=== PATIENT | male | born 1945 | race Hispanic/Latino ===

== ENCOUNTER 2018-06-15 14:39 | Inpatient (IN) | payer MEDICARE ==
[2018-06-15] MEDS ORDERED: NACL 0.9% 1000 ML 1,000 ML ONE (15:34)
[2018-06-15] MEDS ORDERED: NACL 0.9% 1000 ML 1,000 ML IV ONE (15:37)
[2018-06-15] MEDS ORDERED: BOOSTRIX IM ONE (15:38)
[2018-06-15 16:12] LABS: Basophils # (Auto) 0.1 K/mm3 (0.0-0.1); Basophils % (Auto) 1.3 % (0.0-1.8); Eosinophils # (Auto) 0.1 K/mm3 (0.0-0.4); Eosinophils % (Auto) 1.6 % (0.0-4.3); Hematocrit 32.4 % (35.5-45.6); Lymphocytes # (Auto) 2.5 K/mm3 (1.2-5.4); Mean Corpuscular HGB Conc 34 % (32-34); Mean Corpuscular Volume 94 fl (84-94); Platelet Count 203 K/mm3 (140-440); Red Blood Count 3.45 M/mm3 (3.65-5.03); Red Cell Distribution Width 14.3 % (13.2-15.2)
--- NOTE | 2018-06-15 16:15 | Emergency Department Report ---
HPI - General Chief Complaint: Fall Time Seen by Provider: 06/15/18 15:25 - HPI HPI: Room 24 The patient is an 82-year-old male presenting with chief complaint of weakness. The patient admits to diarrhea for the past 4-5 days. Patient has approximately 4-to 5 episodes of diarrhea daily. Has nausea or vomiting. Patient states the same amount of time he said intermittent epigastric abdominal pain. Patient denies fever or recent antibiotic usage. Today patient fell when trying to get out of his chair because he felt too weak. Patient never lost consciousness. Patient gives his pain a score of 4/10 Location: [See above] Duration: [See above] Quality: [See above] Severity: [See above] Modifying factors: [see above] Context: [see above] Mode of transportation: [not driving] ED Past Medical Hx - Past Medical History Hx Hypertension: Yes Hx Psychiatric Treatment: Yes - Surgical History Hx Open Heart Surgery: Yes Hx Cholecystectomy: Yes - Family History Family history: no significant - Social History Smoking Status: Former Smoker Substance Use Type: None - Medications Home Medications: Home Medications Medication Instructions Recorded Confirmed Last Taken Type Baclofen 10 mg PO BID 06/15/18 06/15/18 Unknown History Divalproex ER 250 mg PO BID 06/15/18 06/15/18 Unknown History Donepezil HCl 10 mg PO HS 06/15/18 06/15/18 Unknown History Lisinopril 5 mg PO DAILY 06/15/18 06/15/18 Unknown History Melatonin 5 mg PO HS 06/15/18 06/15/18 Unknown History Meloxicam 7.5 mg PO DAILY 06/15/18 06/15/18 Unknown History QUEtiapine 100 mg PO DAILY 06/15/18 06/15/18 Unknown History amLODIPine 5 mg PO DAILY 06/15/18 06/15/18 Unknown History ED Review of Systems ROS: Stated complaint: FALL Other details as noted in HPI Constitutional: denies: fever Eyes: denies: eye pain ENT: denies: throat pain Respiratory: no symptoms reported Cardiovascular: denies: chest pain Endocrine: no symptoms reported Gastrointestinal: abdominal pain, diarrhea. denies: nausea, vomiting Genitourinary: denies: dysuria Musculoskeletal: denies: back pain Neurological: denies: headache Physical Exam - Physical Exam Vital Signs: Vital Signs 06/15/18 15:08 Temperature 98 F Pulse Rate 65 Respiratory 16 Rate Blood Pressure 98/50 [Left] O2 Sat by Pulse 96 Oximetry Physical Exam: GENERAL: The patient is well-developed well-nourished male lying on stretcher appearing to be in acute distress. [] HEENT: Normocephalic. Small laceration to the left lateral supraorbital ridge approximately 1 cm in length. Extraocular motions are intact. Patient has moist mucous membranes. NECK: Supple. No axial step off CHEST/LUNGS: Clear to auscultation. There is no respiratory distress noted. HEART/CARDIOVASCULAR: Regular. There is no tachycardia. There is no gallop rub or murmur. ABDOMEN: Abdomen is soft, with mild discomfort to palpation in the midepigastric region. Patient has normal bowel sounds. There is no abdominal distention. SKIN: There is no rash. There is no edema. There is no diaphoresis. NEURO: The patient is awake, alert, and oriented. The patient is cooperative. The patient has normal speech MUSCULOSKELETAL: There is no evidence of acute injury. ED Course Vital Signs 06/15/18 15:08 Temperature 98 F Pulse Rate 65 Respiratory 16 Rate Blood Pressure 98/50 [Left] O2 Sat by Pulse 96 Oximetry - Laceration /Wound Repair Left Face Wound Location: face Wound Length (cm): 1 Wound's Depth, Shape: linear Wound Explored: clean Irrigated w/ Saline (ccs): 250 Betadine Prep?: Yes Anesthesia: Lidocaine w/ Epi Volume Anesthetic (ccs): 2 Wound Repaired With: sutures Suture Size/Type: 6:0, nylon Number of Sutures: 2 Layer Closure?: No Sterile Dressing Applied?: Yes ED Medical Decision Making - Lab Data Result diagrams: 06/15/18 15:55 06/15/18 15:55 Laboratory Tests 06/15/18 06/15/18 06/15/18 15:55 15:55 16:19 WBC 7.9 RBC 3.45 L Hgb 11.0 L Hct 32.4 L MCV 94 MCH 32 MCHC 34 RDW 14.3 Plt Count 203 Lymph % (Auto) 31.0 [place] % (Auto) 13.0 H Eos % (Auto) 1.6 Baso % (Auto) 1.3 Lymph # 2.5 [place] # 1.0 H Eos # 0.1 Baso # 0.1 Seg Neutrophils % 53.1 Seg Neutrophils # 4.2 Sodium 141 Potassium 3.2 L Chloride 98.0 Carbon Dioxide 30 Anion Gap 16 BUN 31 H Creatinine 1.4 Estimated GFR 48 BUN/Creatinine Ratio 22 Glucose 86 Calcium 8.6 Total Bilirubin 0.40 AST 22 ALT 10 Alkaline Phosphatase 73 Total Protein 6.4 Albumin 3.4 L Albumin/Globulin Ratio 1.1 Lipase 12 L Urine Color Yellow Urine Turbidity Slightly-cloudy Urine pH 6.0 Ur Specific [place] 1.019 Urine Protein 100 mg/dl Urine Glucose (UA) Neg Urine Ketones 20 Urine Blood Neg Urine Nitrite Neg Urine Bilirubin Neg Urine Urobilinogen < 2.0 Ur Leukocyte Esterase Neg Urine WBC (Auto) 3.0 Urine RBC (Auto) 1.0 U Epithel Cells (Auto) < 1.0 Urine Bacteria (Auto) 1+ Hyaline Casts 3 Urine Mucus Few - Radiology Data Radiology results: report reviewed (CT abdomen and pelvis, CT cervical spine, CT head), image reviewed (CT abdomen and pelvis, CT head, CT cervical spine) [place] [address] Cat Scan Report Signed Patient: FLORENCIA DEGROOT MR#: [id number] : 11/20/1935 Acct:[id number] Age/Sex: 82 / M ADM Date: 06/15/18 Loc: ED Attending Dr: Ordering Physician: JANA FAM MD Date of Service: 06/15/18 Procedure(s): CT abdomen pelvis w con Accession Number(s): [id number] cc: JANA FAM MD PROCEDURE: CT ABDOMEN PELVIS W CON TECHNIQUE: Computerized axial tomography of the abdomen and pelvis was performed with intravenous contrast. CONTRAST: CT DOSE LENGTH PRODUCT: 1296.6 mGycm HISTORY: epigastric abdominal pain, diarrhea COMPARISONS: None . FINDINGS: Visualized lower thorax: No significant abnormality. Liver: Normal size and attenuation. Spleen: Normal size and attenuation. Gallbladder and biliary system: Gallbladder has been surgically removed. Pancreas: Normal. Adrenals: Normal. Kidneys: There is a 1.3 cm low density cyst in the upper pole right kidney. There is a 2.1 cm cyst off the posterior upper pole left kidney. There is a 2.7 cm cyst off the anterior mid pole left kidney. GI tract: There is mild generalized wall thickening of the distal portions of the small bowel which are not dilated loops. Findings are likely consistent with a viral gastroenteritis. Sigmoid diverticulosis is noted without active diverticulitis . Lymph nodes and mesentery: Normal. Vasculature: Moderate calcification of aorta is seen. Bladder: Normal. Reproductive organs: Normal. Peritoneum: No free flui d. Musculoskeletal structures: Bilateral facet joint degenerative changes at L5- S1 are noted. Other: None. IMPRESSION: 1. Mild generalized wall thickening of the distal small bowel without dilatation. Findings are likely consistent with a viral gastroenteritis 2. Sigmoid diverticulosis 3. Numerous bilateral renal cysts This document is electronically signed by Akbar Luis MD., June 15 2018 06:03:23 PM ET Transcribed By: [facility] Dictated By: AKBAR LUIS MD Electronically Authenticated By: AKBAR LUIS MD Signed Date/Time: 06/15/181804 DD/ 43 TD/TT: 06/15/181743 - Differential Diagnosis enteritis, C. difficile colitis, dehydration Critical care attestation.: If time is entered above; I have spent that time in minutes in the direct care of this critically ill patient, excluding procedure time. ED Disposition Clinical Impression: Dehydration, Diarrhea, Closed head injury, Facial laceration Disposition: 09 OP ADMIT IP TO THIS HOSP Is pt being admited?: Yes Does the pt Need Aspirin: No Condition: Fair Referrals: PRIMARY CARE, [Primary Care Provider] - 3-5 Days Time of Disposition: 18:50 (Hospitalist notified (Dr Mayers))
[2018-06-15] MEDS ORDERED: SUBLIMAZE IV ONE (16:17)
[2018-06-15] MEDS ORDERED: ZOFRAN IV ONE (16:17)
[2018-06-15 16:35] LABS: Albumin 3.4 g/dL (3.9-5); Calcium 8.6 mg/dL (8.4-10.2)
[2018-06-15 16:56] LABS: Bacteria,Urine 1+ /HPF (Negative); Bilirubin,Urine NEG (Negative); Blood,Urine NEG (Negative); Color,Urine Yellow (Yellow); Hyaline Casts,Urine 3 /LPF; Mucus,Urine FEW /HPF; Urobilinogen,Urine < 2.0 mg/dL (<2.0)
--- NOTE | 2018-06-15 17:52 | Cat Scan Report ---
PROCEDURE: CT HEAD/BRAIN WO CON TECHNIQUE: Axial helical imaging from the skull base to the vertex. HISTORY: head injury after fall COMPARISONS: None FINDINGS: There is no evidence of an acute intracranial process, intracranial hemorrhage or mass effect. Ventricular size is concordant with the degree of atrophy. The visualized portions of the orbits, paranasal and mastoid sinuses are unremarkable. There is no evidence of fracture. IMPRESSION: 1. No evidence of an acute intracranial process, intracranial hemorrhage or mass effect. 2. No evidence of fracture. This document is electronically signed by Audrey Brand MD., June 15 2018 05:50:44 PM ET
[2018-06-15] MEDS ORDERED: XYLOCAINE 1%/ EPI 1:100,000 INFILTRATI ONE (17:53)
[2018-06-15] MEDS ORDERED: XYLOCAINE 2%/ EPI 1:200,000 INFILTRATI ONE (17:53)
--- NOTE | 2018-06-15 17:56 | Cat Scan Report ---
PROCEDURE: CT CERVICAL SPINE WO CON TECHNIQUE: Axial helical imaging through the cervical spine with sagittal and coronal reformatted im ages obtained. HISTORY: head injury after fall COMPARISONS: None FINDINGS: There is mild anterolisthesis of C7 on T1 secondary to degenerative facet change at this level. The vertebral heights are maintained. There is loss of height of the disc spaces throughout the cervical spine with relative sparing of the C4-C5 and C7-T1 discs. There is multiple level degenerative facet change. There is multiple level mild canal and mild to marked foraminal stenosis secondary to spondylitic nettie nge. Visualization of detail the contents of the cervical canal is limited by artifact. There is no evidence of fracture or posttraumatic subluxation. The paraspinous soft tissues are unremarkable. There is atherosclerotic vascular calcification of the carotid bifurcation bilaterally. IMPRESSION: 1. No evidence of fracture or posttraumatic subluxation. 2. Cervical spondylosis with multiple level canal and foraminal stenosis. 3. Atherosclerotic vascular calcification carotid bifurcation bilaterally. This document is electronically signed by Audrey Brand MD., June 15 2018 05:54:31 PM ET
--- NOTE | 2018-06-15 18:05 | Cat Scan Report ---
PROCEDURE: CT ABDOMEN PELVIS W CON TECHNIQUE: Computerized axial tomography of the abdomen and pelvis was performed with intravenous co ntrast. CONTRAST: CT DOSE LENGTH PRODUCT: 1296.6 mGycm HISTORY: epigastric abdominal pain, diarrhea COMPARISONS: None . FINDINGS: Visualized lower thorax: No significant abnormality. Liver: Normal size and attenuation. Spleen: Normal size and attenuation. Gallbladder and biliary system: Gallbladder has been surgically removed. Pancreas: Normal. Adrenals: Normal. Kidneys: There is a 1.3 cm low density cyst in the upper pole right kidney. There is a 2.1 cm cyst of f the posterior upper pole left kidney. There is a 2.7 cm cyst off the anterior mid pole left kidney. GI tract: There is mild generalized wall thickening of the distal portions of the small bowel which a re not dilated loops. Findings are likely consistent with a viral gastroenteritis. Sigmoid diverticul osis is noted without active diverticulitis . Lymph nodes and mesentery: Normal. Vasculature: Moderate calcification of aorta is seen. Bladder: Normal. Reproductive organs: Normal. Peritoneum: No free fluid. Musculoskeletal structures: Bilateral facet joint degenerative changes at L5-S1 are noted. Other: None. IMPRESSION: 1. Mild generalized wall thickening of the distal small bowel without dilatation. Findings are likely consistent with a viral gastroenteritis 2. Sigmoid diverticulosis 3. Numerous bilateral renal cysts This document is electronically signed by Mariam Luis MD., June 15 2018 06:03:23 PM ET
[2018-06-15] MEDS ORDERED: K-DUR PO ONE (18:18)
--- NOTE | 2018-06-16 00:26 | History and Physical Report ---
History of Present Illness Date of examination: 06/15/18 Date of admission: 06/15/18 18:46 Medications and Allergies Allergies Allergy/AdvReac Type Severity Reaction Status Date / Time No Known Allergies Allergy Verified 06/15/18 15:12 Home Medications Medication Instructions Recorded Confirmed Last Taken Type Baclofen 10 mg PO BID 06/15/18 06/15/18 Unknown History Divalproex ER 250 mg PO BID 06/15/18 06/15/18 Unknown History Donepezil HCl 10 mg PO HS 06/15/18 06/15/18 Unknown History Lisinopril 5 mg PO DAILY 06/15/18 06/15/18 Unknown History Melatonin 5 mg PO HS 06/15/18 06/15/18 Unknown History Meloxicam 7.5 mg PO DAILY 06/15/18 06/15/18 Unknown History QUEtiapine 100 mg PO DAILY 06/15/18 06/15/18 Unknown History amLODIPine 5 mg PO DAILY 06/15/18 06/15/18 Unknown History Exam - Constitutional Vitals: Temp Pulse Resp BP Pulse Ox 97.5 F L 65 18 151/77 96 06/15/18 23:23 06/15/18 23:23 06/15/18 23:23 06/15/18 23:23 06/15/18 23:23 Results - Labs CBC & Chem 7: 06/15/18 15:55 06/15/18 15:55 Labs: Laboratory Last Values WBC 7.9 K/mm3 (4.5-11.0) 06/15/18 15:55 RBC 3.45 M/mm3 (3.65-5.03) L 06/15/18 15:55 Hgb 11.0 gm/dl (11.8-15.2) L 06/15/18 15:55 Hct 32.4 % (35.5-45.6) L 06/15/18 15:55 MCV 94 fl (84-94) 06/15/18 15:55 MCH 32 pg (28-32) 06/15/18 15:55 MCHC 34 % (32-34) 06/15/18 15:55 RDW 14.3 % (13.2-15.2) 06/15/18 15:55 Plt Count 203 K/mm3 (140-440) 06/15/18 15:55 Lymph % (Auto) 31.0 % (13.4-35.0) 06/15/18 15:55 [place] % (Auto) 13.0 % (0.0-7.3) H 06/15/18 15:55 Eos % (Auto) 1.6 % (0.0-4.3) 06/15/18 15:55 Baso % (Auto) 1.3 % (0.0-1.8) 06/15/18 15:55 Lymph # 2.5 K/mm3 (1.2-5.4) 06/15/18 15:55 [place] # 1.0 K/mm3 (0.0-0.8) H 06/15/18 15:55 Eos # 0.1 K/mm3 (0.0-0.4) 06/15/18 15:55 Baso # 0.1 K/mm3 (0.0-0.1) 06/15/18 15:55 Seg Neutrophils % 53.1 % (40.0-70.0) 06/15/18 15:55 Seg Neutrophils # 4.2 K/mm3 (1.8-7.7) 06/15/18 15:55 Sodium 141 mmol/L (137-145) 06/15/18 15:55 Potassium 3.2 mmol/L (3.6-5.0) L 06/15/18 15:55 Chloride 98.0 mmol/L (98-107) 06/15/18 15:55 Carbon Dioxide 30 mmol/L (22-30) 06/15/18 15:55 Anion Gap 16 mmol/L 06/15/18 15:55 BUN 31 mg/dL (9-20) H 06/15/18 15:55 Creatinine 1.4 mg/dL (0.8-1.5) 06/15/18 15:55 Estimated GFR 48 ml/min 06/15/18 15:55 BUN/Creatinine Ratio 22 % 06/15/18 15:55 Glucose 86 mg/dL (75-100) 06/15/18 15:55 Calcium 8.6 mg/dL (8.4-10.2) 06/15/18 15:55 Total Bilirubin 0.40 mg/dL (0.1-1.2) 06/15/18 15:55 AST 22 units/L (5-40) 06/15/18 15:55 ALT 10 units/L (7-56) 06/15/18 15:55 Alkaline Phosphatase 73 units/L (35-129) 06/15/18 15:55 Total Protein 6.4 g/dL (6.3-8.2) 06/15/18 15:55 Albumin 3.4 g/dL (3.9-5) L 06/15/18 15:55 Albumin/Globulin Ratio 1.1 % 06/15/18 15:55 Lipase 12 units/L (13-60) L 06/15/18 15:55 Urine Color Yellow (Yellow) 06/15/18 16:19 Urine Turbidity Slightly-cloudy (Clear) 06/15/18 16:19 Urine pH 6.0 (5.0-7.0) 06/15/18 16:19 Ur Specific [place] 1.019 (1.003-1.030) 06/15/18 16:19 Urine Protein 100 mg/dl mg/dL (Negative) 06/15/18 16:19 Urine Glucose (UA) Neg mg/dL (Negative) 06/15/18 16:19 Urine Ketones 20 mg/dL (Negative) 06/15/18 16:19 Urine Blood Neg (Negative) 06/15/18 16:19 Urine Nitrite Neg (Negative) 06/15/18 16:19 Urine Bilirubin Neg (Negative) 06/15/18 16:19 Urine Urobilinogen < 2.0 mg/dL (<2.0) 06/15/18 16:19 Ur Leukocyte Esterase Neg (Negative) 06/15/18 16:19 Urine WBC (Auto) 3.0 /HPF (0.0-6.0) 06/15/18 16:19 Urine RBC (Auto) 1.0 /HPF (0.0-6.0) 06/15/18 16:19 U Epithel Cells (Auto) < 1.0 /HPF (0-13.0) 06/15/18 16:19 Urine Bacteria (Auto) 1+ /HPF (Negative) 06/15/18 16:19 Hyaline Casts 3 /LPF 06/15/18 16:19 Urine Mucus Few /HPF 06/15/18 16:19
[2018-06-16] MEDS ORDERED: TYLENOL PO PRN (00:30)
[2018-06-16] MEDS ORDERED: SODIUM CHLORIDE FLUSH SYRINGE 10 ML IV PRN (00:30)
[2018-06-16] MEDS ORDERED: K-DUR PO ONE (00:44)
[2018-06-16] MEDS ORDERED: NON-FORMULARY (Baclofen 10 MG) PO SCH (00:45)
[2018-06-16] MEDS: D5NS 1,000 ML IV SCH ×2 (01:04→16:07)
[2018-06-16] MEDS: PERCOCET 5/325 PO PRN (01:04)
[2018-06-16] MEDS: ZOFRAN IV PRN (01:05)
[2018-06-16] MEDS: ALUM-MAG HYDROX-SIMETH 200-200-20MG/5ML PO PRN ×2 (04:07→20:58)
--- NOTE | 2018-06-16 07:00 | Event Note ---
Date: 06/15/18 See H/p in reports Hypotension AGE r/o cdiff
--- NOTE | 2018-06-16 07:26 | History and Physical Report ---
CHIEF COMPLAINT: 1. Severe weakness. 2. Fall. HISTORY OF PRESENT ILLNESS: A 73-year-old male presents with a chief complaint of weakness and diarrhea for the past 4-5 days. The patient has 4-5 episodes of loose bowel movements every day. There is no nausea or vomiting. Has intermittent epigastric pain. No recent fever or antibiotic usage. The patient fell when he was trying to get out of the chair and he felt very weak. Never lost consciousness. PAST MEDICAL HISTORY: Significant for hypertension and schizophrenia. PAST SURGICAL HISTORY: Open heart surgery and cholecystectomy. FAMILY HISTORY: Hypertension. SOCIAL HISTORY: Former smoker. CURRENT MEDICATIONS: Lisinopril 5 mg once a day, Seroquel 100 mg p.o. daily and amlodipine 5 mg p.o. daily, Depakote ER 250 mg twice a day, Aricept 10 mg daily. REVIEW OF SYSTEMS: Significant for feeling weak and feeling lightheaded and falling while standing. No syncope. PHYSICAL EXAMINATION: GENERAL: Elderly male, cooperative during examination. VITAL SIGNS: Initial blood pressure was low, but was 73/40 improved to 90/47 and 98/50, temperature was 98, pulse is 65, respirations 16. HEENT: Unremarkable. Mucous membranes dry. NECK: Supple, no lymphadenopathy, no thyromegaly. LUNGS: Clear to auscultation and percussion. Good air entry. CARDIOVASCULAR: S1, S2 heard. No gallop, no murmur, no rub. Apical impulse in left fifth intercostal space and midclavicular line. ABDOMEN: Soft and benign. No hepatosplenomegaly. No guarding, no rigidity. Hernial orifices are normal. EXTREMITIES: Good pedal pulses. No pedal edema. CENTRAL NERVOUS SYSTEM: Alert and oriented x 4, nonfocal exam. SKIN: Normal. LABORATORY DATA: Significant for white count of 7900, H and H 11.0 and 32.4, potassium is 3.2, albumin is 3.4. Urine is normal. ASSESSMENT AND PLAN: 1. Acute gastroenteritis causing low blood pressure. Symptomatic treatment for the gastroenteritis. 2. Rule out Clostridium difficile. Clostridium difficile toxin ordered. Stool studies ordered. 3. Hypotension, probably secondary to loss of volume. IV fluids for now. 4. Hypokalemia, supplemented. 5. Hypertension. We will introduce antihypertensives when the blood pressure is normalized to high. 6. Bipolar disorder. Continue Seroquel and Depakote. 7. Dementia. Continue Aricept. 8. Arthritis. We will hold the meloxicam. 9. Malnutrition, mild. Nutritional supplements ordered. 10. Deep venous thrombosis prophylaxis, Lovenox 30 mg subcutaneous daily. JOB# [id number] VSM/NTS
[2018-06-16 09:05] LABS: BUN/Creatinine Ratio 20; Blood Urea Nitrogen 22 mg/dL (9-20); Calcium 8.4 mg/dL (8.4-10.2); Hemolysis Index 11
[2018-06-16] MEDS: LIORESAL PO SCH ×2 (09:06→22:26)
[2018-06-16] MEDS ORDERED: ZESTRIL PO SCH (10:00)
[2018-06-16] MEDS ORDERED: NON-FORMULARY (Quetiapine 100 MG) PO SCH (10:00)
[2018-06-16] MEDS ORDERED: DIVALPROEX 250 MG PO SCH (10:00)
[2018-06-16] MEDS ORDERED: NON-FORMULARY (Amlodipine 5 MG) PO SCH (10:00)
[2018-06-16] MEDS ORDERED: NON-FORMULARY (Lisinopril 5 MG) PO SCH (10:00)
[2018-06-16] MEDS ORDERED: NORVASC PO SCH (10:00)
--- NOTE | 2018-06-16 12:39 | Vascular Lab Report ---
PROCEDURE: VL CAROTID DUPLEX BILAT TECHNIQUE: Duplex Doppler ultrasound of the common, internal and external carotid arteries and the v ertebral arteries was performed bilaterally. Goel scale imaging, velocity spectral waveform analysis, and color flow Doppler were employed. HISTORY: syncope COMPARISONS: None . Note: Measurement of carotid stenosis is based on flow velocity values that correlate with the [place] Symptomatic Carotid Endarterectomy Trial (NASCET) based stenosis criteria using the internal carotid artery diameter as the denominator for stenosis calculation. FINDINGS: RIGHT carotid artery: Velocities: ICA PSV: 148.1 cm/sec ICA End diastolic: 25 cm/sec CCA PSV: 94 cm/sec IC/CC ratio: 1 .58 Plaque/color flow: Moderate heterogeneous plaque with aliasing of color flow, without significant sp ectral broadening. RIGHT vertebral artery: Antegrade systolic and diastolic flow LEFT carotid artery: Velocities: ICA PSV: 133.9 cm/sec ICA End diastolic: 23.1 cm/sec CCA PSV: 93.4 cm/sec IC/CC rati o: 1.43 Plaque/color flow: Moderate heterogeneous plaque with aliasing of color flow, without significant sp ectral broadening. LEFT vertebral artery: Antegrade systolic and diastolic flow IMPRESSION: 1. RIGHT carotid: Elevated peak systolic velocity of the internal carotid artery suggestive of 50-6 9% stenosis. 2. LEFT carotid: Elevated peak systolic velocity of the internal carotid artery suggestive of 50-69 % stenosis. 3. Vertebral arteries: Bilaterally antegrade. This document is electronically signed by Valerie Albarado MD., June 16 2018 12:37:14 PM ET
[2018-06-16] MEDS: SODIUM CHLORIDE FLUSH SYRINGE 10 ML IV SCH ×2 (16:07→22:27)
--- NOTE | 2018-06-16 16:08 | Progress Note ---
Assessment and Plan Assessment and plan: Hypotension -cont IV fluid, will monitor blood pressure -Antihypertensives held Sinus bradycardia -Probably secondary to donepezil use -Continue telemetry monitoring -Donepezil held Diarrhea -Patient denies diarrhea -Stool tests cancelled Hypokalemia -Resolved status post repletion History of dementia -Stable Disposition: For discharge if blood pressure stabilizes History Interval history: Patient has no new complaints. He denies diarrhea. Hospitalist Physical - Constitutional Vitals: Temp Pulse Resp BP Pulse Ox 97.3 F L 49 L 14 95/49 96 06/16/18 12:01 06/16/18 12:01 06/16/18 12:01 06/16/18 12:01 06/16/18 12:01 General appearance: Present: no acute distress - EENT Eyes: Present: PERRL, EOM intact ENT: hearing intact, clear oral mucosa - Neck Neck: Present: supple - Respiratory Respiratory effort: normal Respiratory: bilateral: CTA - Cardiovascular Rhythm: regular Heart Sounds: Present: S1 & S2 - Extremities Extremities: No edema - Abdominal General gastrointestinal: soft, non-tender, normal bowel sounds - Integumentary Integumentary: Present: clear, warm, dry - Neurologic Neurologic: CNII-XII intact Results - Labs CBC & Chem 7: 06/15/18 15:55 06/16/18 07:55 Labs: Laboratory Last Values WBC 7.9 K/mm3 (4.5-11.0) 06/15/18 15:55 RBC 3.45 M/mm3 (3.65-5.03) L 06/15/18 15:55 Hgb 11.0 gm/dl (11.8-15.2) L 06/15/18 15:55 Hct 32.4 % (35.5-45.6) L 06/15/18 15:55 MCV 94 fl (84-94) 06/15/18 15:55 MCH 32 pg (28-32) 06/15/18 15:55 MCHC 34 % (32-34) 06/15/18 15:55 RDW 14.3 % (13.2-15.2) 06/15/18 15:55 Plt Count 203 K/mm3 (140-440) 06/15/18 15:55 Lymph % (Auto) 31.0 % (13.4-35.0) 06/15/18 15:55 [place] % (Auto) 13.0 % (0.0-7.3) H 06/15/18 15:55 Eos % (Auto) 1.6 % (0.0-4.3) 06/15/18 15:55 Baso % (Auto) 1.3 % (0.0-1.8) 06/15/18 15:55 Lymph # 2.5 K/mm3 (1.2-5.4) 06/15/18 15:55 [place] # 1.0 K/mm3 (0.0-0.8) H 06/15/18 15:55 Eos # 0.1 K/mm3 (0.0-0.4) 06/15/18 15:55 Baso # 0.1 K/mm3 (0.0-0.1) 06/15/18 15:55 Seg Neutrophils % 53.1 % (40.0-70.0) 06/15/18 15:55 Seg Neutrophils # 4.2 K/mm3 (1.8-7.7) 06/15/18 15:55 Sodium 138 mmol/L (137-145) 06/16/18 07:55 Potassium 4.2 mmol/L (3.6-5.0) D 06/16/18 07:55 Chloride 101.2 mmol/L (98-107) 06/16/18 07:55 Carbon Dioxide 25 mmol/L (22-30) 06/16/18 07:55 Anion Gap 16 mmol/L 06/16/18 07:55 BUN 22 mg/dL (9-20) H 06/16/18 07:55 Creatinine 1.1 mg/dL (0.8-1.5) 06/16/18 07:55 Estimated GFR > 60 ml/min 06/16/18 07:55 BUN/Creatinine Ratio 20 % 06/16/18 07:55 Glucose 109 mg/dL (75-100) H 06/16/18 07:55 Hemoglobin A1c 5.6 % (4-6) 06/16/18 00:44 Calcium 8.4 mg/dL (8.4-10.2) 06/16/18 07:55 Total Bilirubin 0.40 mg/dL (0.1-1.2) 06/15/18 15:55 AST 22 units/L (5-40) 06/15/18 15:55 ALT 10 units/L (7-56) 06/15/18 15:55 Alkaline Phosphatase 73 units/L (35-129) 06/15/18 15:55 Total Protein 6.4 g/dL (6.3-8.2) 06/15/18 15:55 Albumin 3.4 g/dL (3.9-5) L 06/15/18 15:55 Albumin/Globulin Ratio 1.1 % 06/15/18 15:55 Lipase 12 units/L (13-60) L 06/15/18 15:55 Urine Color Yellow (Yellow) 06/15/18 16:19 Urine Turbidity Slightly-cloudy (Clear) 06/15/18 16:19 Urine pH 6.0 (5.0-7.0) 06/15/18 16:19 Ur Specific [place] 1.019 (1.003-1.030) 06/15/18 16:19 Urine Protein 100 mg/dl mg/dL (Negative) 06/15/18 16:19 Urine Glucose (UA) Neg mg/dL (Negative) 06/15/18 16:19 Urine Ketones 20 mg/dL (Negative) 06/15/18 16:19 Urine Blood Neg (Negative) 06/15/18 16:19 Urine Nitrite Neg (Negative) 06/15/18 16:19 Urine Bilirubin Neg (Negative) 06/15/18 16:19 Urine Urobilinogen < 2.0 mg/dL (<2.0) 06/15/18 16:19 Ur Leukocyte Esterase Neg (Negative) 06/15/18 16:19 Urine WBC (Auto) 3.0 /HPF (0.0-6.0) 06/15/18 16:19 Urine RBC (Auto) 1.0 /HPF (0.0-6.0) 06/15/18 16:19 U Epithel Cells (Auto) < 1.0 /HPF (0-13.0) 06/15/18 16:19 Urine Bacteria (Auto) 1+ /HPF (Negative) 06/15/18 16:19 Hyaline Casts 3 /LPF 06/15/18 16:19 Urine Mucus Few /HPF 06/15/18 16:19 Active Medications - Current Medications Current Medications: Generic Name Dose Route Start Last Admin Trade Name Freq PRN Reason Stop Dose Admin Acetaminophen 650 mg 06/16/18 00:30 Tylenol PO Q4H PRN Pain MILD(1-3)/Fever >100.5/[place] Al Hydrox/Mg Hydrox/Simethicone 30 ml 06/16/18 03:55 06/16/18 04:07 Alum-Mag Hydrox-Simeth 991-215-30nf/5ml PO 30 ml Q4H PRN Administration Indigestion Baclofen 10 mg 06/16/18 10:00 06/16/18 09:06 Lioresal PO 10 mg BID GELY Administration Divalproex Sodium 250 mg 06/16/18 10:00 06/16/18 09:05 Depakote Er PO 250 mg BID GELY Administration Sodium Chloride 1,000 mls @ 999 mls/hr 06/16/18 16:02 Nacl 0.9% 1000 Ml IV 06/16/18 17:02 BOLUS ONE Melatonin 5 mg 06/16/18 22:00 Melatonin PO QHS [facility] Ondansetron HCl 4 mg 06/16/18 00:30 06/16/18 01:05 Zofran IV 4 mg Q8H PRN Administration Nausea And Vomiting Oxycodone/Acetaminophen 1 tab 06/16/18 00:30 06/16/18 01:04 Percocet 5/325 PO 1 tab Q6H PRN Administration Pain, Moderate (4-6) Quetiapine Fumarate 100 mg 06/16/18 10:00 06/16/18 09:05 Seroquel PO 100 mg DAILY GELY Administration Sodium Chloride 10 ml 06/16/18 10:00 Sodium Chloride Flush Syringe 10 Ml IV BID GELY Sodium Chloride 10 ml 06/16/18 00:30 Sodium Chloride Flush Syringe 10 Ml IV PRN PRN LINE FLUSH
[2018-06-16] MEDS ORDERED: NACL 0.9% 1000 ML 1,000 ML IV ONE (17:00)
[2018-06-16] MEDS ORDERED: DONEPEZIL HCL 10 MG PO SCH (22:00)
[2018-06-16] MEDS ORDERED: ARICEPT PO SCH (22:00)
[2018-06-16] MEDS ORDERED: NON-FORMULARY (Melatonin 5 MG) PO SCH (22:00)
[2018-06-16] MEDS: MELATONIN PO SCH (22:26)
[2018-06-17 07:42] LABS: Alanine Aminotransferase 10 units/L (7-56); Albumin 3.2 g/dL (3.9-5); BUN/Creatinine Ratio 19; Blood Urea Nitrogen 15 mg/dL (9-20); Calcium 8.3 mg/dL (8.4-10.2); Hemolysis Index 63
[2018-06-17] MEDS: PERCOCET 5/325 PO PRN (10:07)
[2018-06-17] MEDS: LIORESAL PO SCH ×2 (10:07→22:19)
[2018-06-17] MEDS: ALUM-MAG HYDROX-SIMETH 200-200-20MG/5ML PO PRN ×2 (10:07→22:20)
[2018-06-17] MEDS: SODIUM CHLORIDE FLUSH SYRINGE 10 ML IV SCH ×2 (10:08→22:20)
[2018-06-17 10:37] LABS: Basophils # (Auto) 0.2 K/mm3 (0.0-0.1); Basophils % (Auto) 2.7 % (0.0-1.8); Eosinophils # (Auto) 0.3 K/mm3 (0.0-0.4); Eosinophils % (Auto) 3.7 % (0.0-4.3); Hematocrit 34.9 % (35.5-45.6); Lymphocytes # (Auto) 1.8 K/mm3 (1.2-5.4); Mean Corpuscular HGB Conc 34 % (32-34); Mean Corpuscular Volume 94 fl (84-94); Monocytes # (Auto) 0.9 K/mm3 (0.0-0.8); Monocytes % (Auto) 11.4 % (0.0-7.3); Platelet Count 228 K/mm3 (140-440); Red Blood Count 3.72 M/mm3 (3.65-5.03); Red Cell Distribution Width 14.3 % (13.2-15.2)
[2018-06-17] MEDS ORDERED: NACL 0.9% 500 ML 1,000 ML ONE (16:22)
[2018-06-17] MEDS ORDERED: NACL 0.9% 500 ML 500 ML IV ONE ×2 (17:05→17:34)
--- NOTE | 2018-06-17 17:42 | Progress Note ---
Assessment and Plan Assessment and plan: Hypotension, recurrent -Blood pressure trending down this afternoon -cont IV fluid, will monitor blood pressure -Antihypertensives held -We'll check a.m. cortisol level Sinus bradycardia -Probably secondary to donepezil use -Improved after donepezil held -Continue telemetry monitoring Diarrhea -Patient denies diarrhea -Stool tests cancelled Hypokalemia -Resolved status post repletion History of dementia -Stable Disposition: Due to recurrent hypotension, we'll hold discharge for today History Interval history: Patient reports some abdominal discomfort due to the history of gastric ulcer Hospitalist Physical - Constitutional Vitals: Temp Pulse Resp BP Pulse Ox 98.4 F 64 18 124/79 95 06/17/18 09:15 06/17/18 09:14 06/17/18 09:14 06/17/18 09:14 06/17/18 09:14 General appearance: Present: no acute distress - EENT Eyes: Present: PERRL, EOM intact ENT: hearing intact, clear oral mucosa - Neck Neck: Present: supple - Respiratory Respiratory effort: normal Respiratory: bilateral: CTA - Cardiovascular Rhythm: regular Heart Sounds: Present: S1 & S2 - Extremities Extremities: No edema - Abdominal General gastrointestinal: soft, non-tender, normal bowel sounds - Integumentary Integumentary: Present: clear, warm, dry - Neurologic Neurologic: moves all extremities Results - Labs CBC & Chem 7: 06/17/18 07:00 06/17/18 07:00 Labs: Laboratory Last Values WBC 7.7 K/mm3 (4.5-11.0) 06/17/18 07:00 RBC 3.72 M/mm3 (3.65-5.03) 06/17/18 07:00 Hgb 12.0 gm/dl (11.8-15.2) 06/17/18 07:00 Hct 34.9 % (35.5-45.6) L 06/17/18 07:00 MCV 94 fl (84-94) 06/17/18 07:00 MCH 32 pg (28-32) 06/17/18 07:00 MCHC 34 % (32-34) 06/17/18 07:00 RDW 14.3 % (13.2-15.2) 06/17/18 07:00 Plt Count 228 K/mm3 (140-440) 06/17/18 07:00 Lymph % (Auto) 23.0 % (13.4-35.0) 06/17/18 07:00 [place] % (Auto) 11.4 % (0.0-7.3) H 06/17/18 07:00 Eos % (Auto) 3.7 % (0.0-4.3) 06/17/18 07:00 Baso % (Auto) 2.7 % (0.0-1.8) H 06/17/18 07:00 Lymph # 1.8 K/mm3 (1.2-5.4) 06/17/18 07:00 [place] # 0.9 K/mm3 (0.0-0.8) H 06/17/18 07:00 Eos # 0.3 K/mm3 (0.0-0.4) 06/17/18 07:00 Baso # 0.2 K/mm3 (0.0-0.1) H 06/17/18 07:00 Seg Neutrophils % 59.2 % (40.0-70.0) 06/17/18 07:00 Seg Neutrophils # 4.6 K/mm3 (1.8-7.7) 06/17/18 07:00 Sodium 137 mmol/L (137-145) 06/17/18 07:00 Potassium 4.2 mmol/L (3.6-5.0) 06/17/18 07:00 Chloride 101.0 mmol/L (98-107) 06/17/18 07:00 Carbon Dioxide 25 mmol/L (22-30) 06/17/18 07:00 Anion Gap 15 mmol/L 06/17/18 07:00 BUN 15 mg/dL (9-20) 06/17/18 07:00 Creatinine 0.8 mg/dL (0.8-1.5) 06/17/18 07:00 Estimated GFR > 60 ml/min 06/17/18 07:00 BUN/Creatinine Ratio 19 % 06/17/18 07:00 Glucose 101 mg/dL (75-100) H 06/17/18 07:00 POC Glucose 97 (70-105) 06/17/18 08:05 Hemoglobin A1c 5.6 % (4-6) 06/16/18 00:44 Calcium 8.3 mg/dL (8.4-10.2) L 06/17/18 07:00 Magnesium 2.00 mg/dL (1.7-2.3) 06/17/18 07:00 Total Bilirubin 0.30 mg/dL (0.1-1.2) 06/17/18 07:00 AST 21 units/L (5-40) 06/17/18 07:00 ALT 10 units/L (7-56) 06/17/18 07:00 Alkaline Phosphatase 68 units/L (35-129) 06/17/18 07:00 Total Protein 6.4 g/dL (6.3-8.2) 06/17/18 07:00 Albumin 3.2 g/dL (3.9-5) L 06/17/18 07:00 Albumin/Globulin Ratio 1.0 % 06/17/18 07:00 Lipase 12 units/L (13-60) L 06/15/18 15:55 Urine Color Yellow (Yellow) 06/15/18 16:19 Urine Turbidity Slightly-cloudy (Clear) 06/15/18 16:19 Urine pH 6.0 (5.0-7.0) 06/15/18 16:19 Ur Specific [place] 1.019 (1.003-1.030) 06/15/18 16:19 Urine Protein 100 mg/dl mg/dL (Negative) 06/15/18 16:19 Urine Glucose (UA) Neg mg/dL (Negative) 06/15/18 16:19 Urine Ketones 20 mg/dL (Negative) 06/15/18 16:19 Urine Blood Neg (Negative) 06/15/18 16:19 Urine Nitrite Neg (Negative) 06/15/18 16:19 Urine Bilirubin Neg (Negative) 06/15/18 16:19 Urine Urobilinogen < 2.0 mg/dL (<2.0) 06/15/18 16:19 Ur Leukocyte Esterase Neg (Negative) 06/15/18 16:19 Urine WBC (Auto) 3.0 /HPF (0.0-6.0) 06/15/18 16:19 Urine RBC (Auto) 1.0 /HPF (0.0-6.0) 06/15/18 16:19 U Epithel Cells (Auto) < 1.0 /HPF (0-13.0) 06/15/18 16:19 Urine Bacteria (Auto) 1+ /HPF (Negative) 06/15/18 16:19 Hyaline Casts 3 /LPF 06/15/18 16:19 Urine Mucus Few /HPF 06/15/18 16:19 Active Medications - Current Medications Current Medications: Generic Name Dose Route Start Last Admin Trade Name Freq PRN Reason Stop Dose Admin Acetaminophen 650 mg 06/16/18 00:30 Tylenol PO Q4H PRN Pain MILD(1-3)/Fever >100.5/[place] Al Hydrox/Mg Hydrox/Simethicone 30 ml 06/16/18 03:55 06/17/18 10:07 Alum-Mag Hydrox-Simeth 008-234-62oy/5ml PO 30 ml Q4H PRN Administration Indigestion Baclofen 10 mg 06/16/18 10:00 06/17/18 10:07 Lioresal PO 10 mg BID GELY Administration Divalproex Sodium 250 mg 06/16/18 10:00 06/17/18 10:07 Depakote Er PO 250 mg BID GELY Administration Sodium Chloride 500 mls @ 999 mls/hr 06/17/18 17:34 Nacl 0.9% 500 Ml IV 06/17/18 18:04 ONCE ONE Sodium Chloride 1,000 mls @ 100 mls/hr 06/17/18 18:00 Nacl 0.9% 1000 Ml IV DIRECT GELY Melatonin 5 mg 06/16/18 22:00 06/16/18 22:26 Melatonin PO 5 mg QHS GELY Administration Ondansetron HCl 4 mg 06/16/18 00:30 06/16/18 01:05 Zofran IV 4 mg Q8H PRN Administration Nausea And Vomiting Oxycodone/Acetaminophen 1 tab 06/16/18 00:30 06/17/18 10:07 Percocet 5/325 PO 1 tab Q6H PRN Administration Pain, Moderate (4-6) Quetiapine Fumarate 100 mg 06/16/18 10:00 06/17/18 10:07 Seroquel PO 100 mg DAILY GELY Administration Sodium Chloride 10 ml 06/16/18 10:00 06/17/18 10:08 Sodium Chloride Flush Syringe 10 Ml IV 10 ml BID GELY Administration Sodium Chloride 10 ml 06/16/18 00:30 Sodium Chloride Flush Syringe 10 Ml IV PRN PRN LINE FLUSH
[2018-06-17] MEDS: NACL 0.9% 1000 ML 1,000 ML IV SCH (21:02)
[2018-06-17] MEDS: MELATONIN PO SCH (22:19)
[2018-06-18] MEDS: ZOFRAN IV PRN ×2 (02:13→08:31)
[2018-06-18] MEDS: ALUM-MAG HYDROX-SIMETH 200-200-20MG/5ML PO PRN ×2 (02:36→08:31)
[2018-06-18] MEDS: PERCOCET 5/325 PO PRN (05:06)
[2018-06-18] MEDS: NACL 0.9% 1000 ML 1,000 ML IV SCH (06:46)
[2018-06-18 07:40] LABS: BUN/Creatinine Ratio 17; Blood Urea Nitrogen 15 mg/dL (9-20); Calcium 8.7 mg/dL (8.4-10.2); Hemolysis Index 5
[2018-06-18 09:32] LABS: Hematocrit 34.8 % (35.5-45.6)
--- NOTE | 2018-06-18 10:18 | Consultation ---
History of Present Illness Consult date: 06/18/18 Consult reason: arrhythmia History of present illness: Patient is a 73 year old male who resides in a Residential. Patient is poor historian due to underlying dementia but gives a history of coronary artery disease with 3 vessel bypass grafting done at [facility] 9 years ago. It is unclear if he has had any recent cardiac workup although he reports he was hospitalized at [facility] 3 months ago. Patient was admitted 06/15 with syncope thought secondary to hypotension. Patient reports dizziness just prior to passing out. Blood pressure documented as 73/40 on presentation. A head CT scan reports no acute intracranial abnormalities. There was no EKG obtained for review. A cardiac consultation was requested for transient non-sustained ventricular tachycardia seen on telemetry. Patient denies chest pain, unusual shortness of breath and palpitations. There has not been any further ectopy seen on telemetry thus far. Labs shows a normal magnesium and TSH. Medications and Allergies Allergies Allergy/AdvReac Type Severity Reaction Status Date / Time No Known Allergies Allergy Verified 06/15/18 15:12 Home Medications Medication Instructions Recorded Confirmed Last Taken Type Baclofen 10 mg PO BID 06/15/18 06/15/18 Unknown History Divalproex ER 250 mg PO BID 06/15/18 06/15/18 Unknown History Lisinopril 5 mg PO DAILY 06/15/18 06/15/18 Unknown History Melatonin 5 mg PO HS 06/15/18 06/15/18 Unknown History QUEtiapine 100 mg PO DAILY 06/15/18 06/15/18 Unknown History Donepezil HCl 5 mg PO HS #30 06/17/18 06/15/18 Unknown Rx Pantoprazole [Protonix] 40 mg PO QDAY #30 tablet 06/17/18 Unknown Rx Active Meds: Active Medications Acetaminophen (Tylenol) 650 mg PO Q4H PRN PRN Reason: Pain MILD(1-3)/Fever >100.5/[place] Al Hydrox/Mg Hydrox/Simethicone (Alum-Mag Hydrox-Simeth 657-242-32mm/5ml) 30 ml PO Q4H PRN PRN Reason: Indigestion Last Admin: 06/18/18 08:31 Dose: 30 ml Documented by: Baclofen (Lioresal) 10 mg PO BID [facility] Last Admin: 06/17/18 22:19 Dose: 10 mg Documented by: Divalproex Sodium (Depakote Er) 250 mg PO BID [facility] Last Admin: 06/17/18 22:19 Dose: 250 mg Documented by: Melatonin (Melatonin) 5 mg PO QHS [facility] Last Admin: 06/17/18 22:19 Dose: 5 mg Documented by: Ondansetron HCl (Zofran) 4 mg IV Q8H PRN PRN Reason: Nausea And Vomiting Last Admin: 06/18/18 08:31 Dose: 4 mg Documented by: Oxycodone/Acetaminophen (Percocet 5/325) 1 tab PO Q6H PRN PRN Reason: Pain, Moderate (4-6) Last Admin: 06/18/18 05:06 Dose: 1 tab Documented by: Pantoprazole Sodium (Protonix) 40 mg IV BID [facility] Polyethylene Glycol (Miralax 3350) 17 gm PO QDAY [facility] Quetiapine Fumarate (Seroquel) 100 mg PO DAILY [facility] Last Admin: 06/17/18 10:07 Dose: 100 mg Documented by: Senna/Docusate Sodium (Senokot S) 2 tab PO Q12H [facility] Sodium Chloride (Sodium Chloride Flush Syringe 10 Ml) 10 ml IV BID [facility] Last Admin: 06/17/18 22:20 Dose: Not Given Documented by: Sodium Chloride (Sodium Chloride Flush Syringe 10 Ml) 10 ml IV PRN PRN PRN Reason: LINE FLUSH Sucralfate (Carafate) 1 gm PO ACHS [facility] Physical Examination Vital Signs Temp Pulse Resp BP Pulse Ox 98 F 65 16 98/50 96 06/15/18 15:08 06/15/18 15:08 06/15/18 15:08 06/15/18 15:08 06/15/18 15:08 General appearance: no acute distress HEENT: Positive: PERRL Neck: Positive: trachea midline Cardiac: Positive: Reg Rate and Rhythm Lungs: Positive: Decreased Breath Sounds Neuro: Positive: Grossly Intact Extremities: Absent: edema Results 06/18/18 09:14 06/18/18 06:42 CBC 06/17/18 06/18/18 Range/Units 07:00 09:14 WBC 7.7 (4.5-11.0) K/mm3 RBC 3.72 (3.65-5.03) M/mm3 Hgb 12.0 12.0 (11.8-15.2) gm/dl Hct 34.9 L 34.8 L (35.5-45.6) % Plt Count 228 (140-440) K/mm3 Lymph # 1.8 (1.2-5.4) K/mm3 [place] # 0.9 H (0.0-0.8) K/mm3 Eos # 0.3 (0.0-0.4) K/mm3 Baso # 0.2 H (0.0-0.1) K/mm3 Comprehensive Metabolic Panel 06/18/18 Range/Units 06:42 Sodium 139 (137-145) mmol/L Potassium 4.0 (3.6-5.0) mmol/L Chloride 101.5 (98-107) mmol/L Carbon Dioxide 27 (22-30) mmol/L BUN 15 (9-20) mg/dL Creatinine 0.9 (0.8-1.5) mg/dL Glucose 100 (75-100) mg/dL Calcium 8.7 (8.4-10.2) mg/dL Assessment and Plan Syncope thought to hypotension head CT scan reports no acute intracranial abnormalities Dementia NSVT on telemetry, patient remained asymptomatic normal TSH Hx of CAD with prior bypass grafting Recommendations: Continue telemetry monitoring. 12 lead EKG. Obtain records from [facility] for cardiac review.
[2018-06-18] MEDS: SENOKOT S PO SCH ×2 (10:41→22:13)
[2018-06-18] MEDS: MIRALAX 3350 PO SCH (10:41)
[2018-06-18] MEDS: CARAFATE PO SCH ×3 (10:41→22:12)
[2018-06-18] MEDS: PROTONIX IV SCH ×2 (10:41→22:13)
[2018-06-18] MEDS: LIORESAL PO SCH ×2 (10:41→22:13)
[2018-06-18] MEDS: SODIUM CHLORIDE FLUSH SYRINGE 10 ML IV SCH ×2 (10:42→22:13)
--- NOTE | 2018-06-18 14:22 | Progress Note ---
Assessment and Plan Assessment and plan: Orthostatic hypotension -will monitor orthostatic vitals and continue IVF as needed -Antihypertensives held -cortisol level pending Arrhythmia (Sinus bradycardia, NSVT) -Thyroid function tests normal -Donepezil held due to predisposition to bradycardia -Continue telemetry monitoring -Echocardiogram pending -Cardiology following Generalized abdominal pain -Probably due to peptic ulcer disease/constipation -Lipase level low -Protonix, sucralfate and laxatives started -Consider further testing with imaging if no improvement Hx of CAD -Status post 3 vessel CABG, stable Reported diarrhea on admission -Patient denies diarrhea -Stool tests cancelled Hypokalemia -Resolved status post repletion History of dementia -Stable Disposition: For discharge when medically stable History Interval history: Pt complained of generalized abdominal pain which he attributes to his hx of PUD. He denies bleeding from any orifice. It was reported that patient had nonsustained V. tach yesterday evening. He denies current chest pain or shortness of breath Hospitalist Physical - Constitutional Vitals: Temp Pulse Resp BP Pulse Ox 98.6 F 63 18 109/62 97 06/18/18 11:14 06/18/18 11:14 06/18/18 11:14 06/18/18 11:14 06/18/18 11:14 General appearance: Present: no acute distress - EENT Eyes: Present: PERRL, EOM intact ENT: hearing intact, clear oral mucosa - Neck Neck: Present: supple - Respiratory Respiratory effort: normal Respiratory: bilateral: CTA - Cardiovascular Rhythm: regular Heart Sounds: Present: S1 & S2 - Extremities Extremities: No edema - Abdominal General gastrointestinal: soft, tender (generalized), non-distended, normal bowel sounds - Integumentary Integumentary: Present: clear, warm, dry - Neurologic Neurologic: CNII-XII intact Results - Labs CBC & Chem 7: 06/18/18 09:14 06/18/18 06:42 Labs: Laboratory Last Values WBC 7.7 K/mm3 (4.5-11.0) 06/17/18 07:00 RBC 3.72 M/mm3 (3.65-5.03) 06/17/18 07:00 Hgb 12.0 gm/dl (11.8-15.2) 06/18/18 09:14 Hct 34.8 % (35.5-45.6) L 06/18/18 09:14 MCV 94 fl (84-94) 06/17/18 07:00 MCH 32 pg (28-32) 06/17/18 07:00 MCHC 34 % (32-34) 06/17/18 07:00 RDW 14.3 % (13.2-15.2) 06/17/18 07:00 Plt Count 228 K/mm3 (140-440) 06/17/18 07:00 Lymph % (Auto) 23.0 % (13.4-35.0) 06/17/18 07:00 [place] % (Auto) 11.4 % (0.0-7.3) H 06/17/18 07:00 Eos % (Auto) 3.7 % (0.0-4.3) 06/17/18 07:00 Baso % (Auto) 2.7 % (0.0-1.8) H 06/17/18 07:00 Lymph # 1.8 K/mm3 (1.2-5.4) 06/17/18 07:00 [place] # 0.9 K/mm3 (0.0-0.8) H 06/17/18 07:00 Eos # 0.3 K/mm3 (0.0-0.4) 06/17/18 07:00 Baso # 0.2 K/mm3 (0.0-0.1) H 06/17/18 07:00 Seg Neutrophils % 59.2 % (40.0-70.0) 06/17/18 07:00 Seg Neutrophils # 4.6 K/mm3 (1.8-7.7) 06/17/18 07:00 Sodium 139 mmol/L (137-145) 06/18/18 06:42 Potassium 4.0 mmol/L (3.6-5.0) 06/18/18 06:42 Chloride 101.5 mmol/L (98-107) 06/18/18 06:42 Carbon Dioxide 27 mmol/L (22-30) 06/18/18 06:42 Anion Gap 15 mmol/L 06/18/18 06:42 BUN 15 mg/dL (9-20) 06/18/18 06:42 Creatinine 0.9 mg/dL (0.8-1.5) 06/18/18 06:42 Estimated GFR > 60 ml/min 06/18/18 06:42 BUN/Creatinine Ratio 17 % 06/18/18 06:42 Glucose 100 mg/dL (75-100) 06/18/18 06:42 POC Glucose 97 (70-105) 06/17/18 08:05 Hemoglobin A1c 5.6 % (4-6) 06/16/18 00:44 Calcium 8.7 mg/dL (8.4-10.2) 06/18/18 06:42 Magnesium 2.00 mg/dL (1.7-2.3) 06/17/18 07:00 Total Bilirubin 0.30 mg/dL (0.1-1.2) 06/17/18 07:00 AST 21 units/L (5-40) 06/17/18 07:00 ALT 10 units/L (7-56) 06/17/18 07:00 Alkaline Phosphatase 68 units/L (35-129) 06/17/18 07:00 Total Protein 6.4 g/dL (6.3-8.2) 06/17/18 07:00 Albumin 3.2 g/dL (3.9-5) L 06/17/18 07:00 Albumin/Globulin Ratio 1.0 % 06/17/18 07:00 Lipase 11 units/L (13-60) L 06/18/18 09:14 TSH 3.320 mlU/mL (0.270-4.200) 06/18/18 09:14 Free T4 1.06 ng/dL (0.76-1.46) 06/18/18 09:14 Urine Color Yellow (Yellow) 06/15/18 16:19 Urine Turbidity Slightly-cloudy (Clear) 06/15/18 16:19 Urine pH 6.0 (5.0-7.0) 06/15/18 16:19 Ur Specific [place] 1.019 (1.003-1.030) 06/15/18 16:19 Urine Protein 100 mg/dl mg/dL (Negative) 06/15/18 16:19 Urine Glucose (UA) Neg mg/dL (Negative) 06/15/18 16:19 Urine Ketones 20 mg/dL (Negative) 06/15/18 16:19 Urine Blood Neg (Negative) 06/15/18 16:19 Urine Nitrite Neg (Negative) 06/15/18 16:19 Urine Bilirubin Neg (Negative) 06/15/18 16:19 Urine Urobilinogen < 2.0 mg/dL (<2.0) 06/15/18 16:19 Ur Leukocyte Esterase Neg (Negative) 06/15/18 16:19 Urine WBC (Auto) 3.0 /HPF (0.0-6.0) 06/15/18 16:19 Urine RBC (Auto) 1.0 /HPF (0.0-6.0) 06/15/18 16:19 U Epithel Cells (Auto) < 1.0 /HPF (0-13.0) 06/15/18 16:19 Urine Bacteria (Auto) 1+ /HPF (Negative) 06/15/18 16:19 Hyaline Casts 3 /LPF 06/15/18 16:19 Urine Mucus Few /HPF 06/15/18 16:19 Active Medications - Current Medications Current Medications: Generic Name Dose Route Start Last Admin Trade Name Freq PRN Reason Stop Dose Admin Acetaminophen 650 mg 06/16/18 00:30 Tylenol PO Q4H PRN Pain MILD(1-3)/Fever >100.5/[place] Al Hydrox/Mg Hydrox/Simethicone 30 ml 06/16/18 03:55 06/18/18 08:31 Alum-Mag Hydrox-Simeth 309-241-61or/5ml PO 30 ml Q4H PRN Administration Indigestion Baclofen 10 mg 06/16/18 10:00 06/18/18 10:41 Lioresal PO 10 mg BID GELY Administration Divalproex Sodium 250 mg 06/16/18 10:00 06/18/18 10:41 Depakote Er PO 250 mg BID GELY Administration Melatonin 5 mg 06/16/18 22:00 06/17/18 22:19 Melatonin PO 5 mg QHS GELY Administration Ondansetron HCl 4 mg 06/16/18 00:30 06/18/18 08:31 Zofran IV 4 mg Q8H PRN Administration Nausea And Vomiting Oxycodone/Acetaminophen 1 tab 06/16/18 00:30 06/18/18 05:06 Percocet 5/325 PO 1 tab Q6H PRN Administration Pain, Moderate (4-6) Pantoprazole Sodium 40 mg 06/18/18 10:00 06/18/18 10:41 Protonix IV 40 mg BID GELY Administration Polyethylene Glycol 17 gm 06/18/18 10:00 06/18/18 10:41 Miralax 3350 PO 17 gm QDAY GELY Administration Quetiapine Fumarate 100 mg 06/16/18 10:00 06/18/18 10:41 Seroquel PO 100 mg DAILY GELY Administration Senna/Docusate Sodium 2 tab 06/18/18 10:00 06/18/18 10:41 Senokot S PO 2 tab Q12H GELY Administration Sodium Chloride 10 ml 06/16/18 10:00 06/18/18 10:42 Sodium Chloride Flush Syringe 10 Ml IV 10 ml BID GELY Administration Sodium Chloride 10 ml 06/16/18 00:30 Sodium Chloride Flush Syringe 10 Ml IV PRN PRN LINE FLUSH Sucralfate 1 gm 06/18/18 11:30 06/18/18 10:41 Carafate PO 1 gm ACHS GELY Administration
[2018-06-18] MEDS ORDERED: NACL 0.9% 1000 ML 1,000 ML IV ONE (15:00)
[2018-06-18] MEDS ORDERED: NACL 0.9% 1000 ML 1,000 ML IV SCH (16:00)
[2018-06-18] MEDS: MELATONIN PO SCH (22:13)
--- NOTE | 2018-06-19 11:10 | Progress Note ---
Assessment and Plan Syncope thought to hypotension head CT scan reports no acute intracranial abnormalities Dementia NSVT on telemetry 06/17 no further events thus far normal TSH Hx of CAD with prior bypass grafting Plan: Echocardiogram will be done for left ventricular function assessment. Subjective Date of service: 06/19/18 Interval history: Patient has no complaints. Sinus bradycardia, rate mid 40s to mid 50s on telemetry. Objective Vital Signs Temp Pulse Pulse Resp BP BP Pulse Ox 06/19/18 08:02 98.3 F 55 L 18 117/60 94 06/19/18 04:06 97.5 F L 47 L 20 105/48 97 06/18/18 23:54 98.2 F 44 L 20 114/50 95 06/18/18 19:39 98.3 F 57 L 20 130/57 98 06/18/18 17:00 49 L 06/18/18 14:50 45 L 98 06/18/18 14:25 50 L 135/61 06/18/18 11:14 98.6 F 63 18 109/62 97 - Physical Examination General: No Apparent Distress HEENT: Positive: PERRL Neck: Positive: trachea midline Cardiac: Positive: Bradycardia Lungs: Positive: Decreased Breath Sounds Neuro: Positive: Grossly Intact Extremities: Absent: edema
[2018-06-19] MEDS: LIORESAL PO SCH ×2 (11:56→22:05)
[2018-06-19] MEDS: CARAFATE PO SCH ×4 (11:56→22:05)
[2018-06-19] MEDS: MIRALAX 3350 PO SCH (11:57)
[2018-06-19] MEDS: SODIUM CHLORIDE FLUSH SYRINGE 10 ML IV SCH ×2 (11:58→22:09)
[2018-06-19] MEDS: SENOKOT S PO SCH ×2 (15:36→22:09)
--- NOTE | 2018-06-19 17:12 | Progress Note ---
Assessment and Plan Assessment and plan: Orthostatic hypotension -will monitor orthostatic vitals and continue IVF as needed -Antihypertensives held -cortisol level pending Arrhythmia (Sinus bradycardia, NSVT) -Thyroid function tests normal -Donepezil held due to predisposition to bradycardia -Continue telemetry monitoring -Echocardiogram pending -Cardiology following Generalized abdominal pain -Probably due to peptic ulcer disease/constipation -Lipase level low -Protonix, sucralfate and laxatives started -Consider further testing with imaging if no improvement Hx of CAD -Status post 3 vessel CABG, stable Reported diarrhea on admission -Patient denies diarrhea -Stool tests cancelled Hypokalemia -Resolved status post repletion History of dementia -Stable Disposition: For discharge when medically stable CONSVERATIVE MANAGEMENT PER CARDIOLOGY. DISCHARGE IN AM History Interval history: Patient seen and examined, resting comfortable, but appears to be not sure where he is going from the hospital Hospitalist Physical - Physical exam Narrative exam: General appearance: Present: no acute distress - EENT Eyes: Present: PERRL, EOM intact ENT: hearing intact, clear oral mucosa - Neck Neck: Present: supple - Respiratory Respiratory effort: normal Respiratory: bilateral: CTA - Cardiovascular Rhythm: regular Heart Sounds: Present: S1 & S2 - Extremities Extremities: No edema - Abdominal General gastrointestinal: soft, tender (generalized), non-distended, normal bowel sounds - Integumentary Integumentary: Present: clear, warm, dry - Neurologic Neurologic: CNII-XII intact - Constitutional Vitals: Temp Pulse Resp BP Pulse Ox 98.6 F 52 L 18 119/60 96 06/19/18 16:11 06/19/18 16:11 06/19/18 16:11 06/19/18 16:11 06/19/18 16:11 General appearance: Present: no acute distress Results - Labs CBC & Chem 7: 06/18/18 09:14 06/18/18 06:42 Labs: Laboratory Last Values WBC 7.7 K/mm3 (4.5-11.0) 06/17/18 07:00 RBC 3.72 M/mm3 (3.65-5.03) 06/17/18 07:00 Hgb 12.0 gm/dl (11.8-15.2) 06/18/18 09:14 Hct 34.8 % (35.5-45.6) L 06/18/18 09:14 MCV 94 fl (84-94) 06/17/18 07:00 MCH 32 pg (28-32) 06/17/18 07:00 MCHC 34 % (32-34) 06/17/18 07:00 RDW 14.3 % (13.2-15.2) 06/17/18 07:00 Plt Count 228 K/mm3 (140-440) 06/17/18 07:00 Lymph % (Auto) 23.0 % (13.4-35.0) 06/17/18 07:00 [place] % (Auto) 11.4 % (0.0-7.3) H 06/17/18 07:00 Eos % (Auto) 3.7 % (0.0-4.3) 06/17/18 07:00 Baso % (Auto) 2.7 % (0.0-1.8) H 06/17/18 07:00 Lymph # 1.8 K/mm3 (1.2-5.4) 06/17/18 07:00 [place] # 0.9 K/mm3 (0.0-0.8) H 06/17/18 07:00 Eos # 0.3 K/mm3 (0.0-0.4) 06/17/18 07:00 Baso # 0.2 K/mm3 (0.0-0.1) H 06/17/18 07:00 Seg Neutrophils % 59.2 % (40.0-70.0) 06/17/18 07:00 Seg Neutrophils # 4.6 K/mm3 (1.8-7.7) 06/17/18 07:00 Sodium 139 mmol/L (137-145) 06/18/18 06:42 Potassium 4.0 mmol/L (3.6-5.0) 06/18/18 06:42 Chloride 101.5 mmol/L (98-107) 06/18/18 06:42 Carbon Dioxide 27 mmol/L (22-30) 06/18/18 06:42 Anion Gap 15 mmol/L 06/18/18 06:42 BUN 15 mg/dL (9-20) 06/18/18 06:42 Creatinine 0.9 mg/dL (0.8-1.5) 06/18/18 06:42 Estimated GFR > 60 ml/min 06/18/18 06:42 BUN/Creatinine Ratio 17 % 06/18/18 06:42 Glucose 100 mg/dL (75-100) 06/18/18 06:42 POC Glucose 93 (70-105) 06/19/18 16:18 Hemoglobin A1c 5.6 % (4-6) 06/16/18 00:44 Calcium 8.7 mg/dL (8.4-10.2) 06/18/18 06:42 Magnesium 2.00 mg/dL (1.7-2.3) 06/17/18 07:00 Total Bilirubin 0.30 mg/dL (0.1-1.2) 06/17/18 07:00 AST 21 units/L (5-40) 06/17/18 07:00 ALT 10 units/L (7-56) 06/17/18 07:00 Alkaline Phosphatase 68 units/L (35-129) 06/17/18 07:00 Total Protein 6.4 g/dL (6.3-8.2) 06/17/18 07:00 Albumin 3.2 g/dL (3.9-5) L 06/17/18 07:00 Albumin/Globulin Ratio 1.0 % 06/17/18 07:00 Lipase 11 units/L (13-60) L 06/18/18 09:14 TSH 3.320 mlU/mL (0.270-4.200) 06/18/18 09:14 Free T4 1.06 ng/dL (0.76-1.46) 06/18/18 09:14 Urine Color Yellow (Yellow) 06/15/18 16:19 Urine Turbidity Slightly-cloudy (Clear) 06/15/18 16:19 Urine pH 6.0 (5.0-7.0) 06/15/18 16:19 Ur Specific [place] 1.019 (1.003-1.030) 06/15/18 16:19 Urine Protein 100 mg/dl mg/dL (Negative) 06/15/18 16:19 Urine Glucose (UA) Neg mg/dL (Negative) 06/15/18 16:19 Urine Ketones 20 mg/dL (Negative) 06/15/18 16:19 Urine Blood Neg (Negative) 06/15/18 16:19 Urine Nitrite Neg (Negative) 06/15/18 16:19 Urine Bilirubin Neg (Negative) 06/15/18 16:19 Urine Urobilinogen < 2.0 mg/dL (<2.0) 06/15/18 16:19 Ur Leukocyte Esterase Neg (Negative) 06/15/18 16:19 Urine WBC (Auto) 3.0 /HPF (0.0-6.0) 06/15/18 16:19 Urine RBC (Auto) 1.0 /HPF (0.0-6.0) 06/15/18 16:19 U Epithel Cells (Auto) < 1.0 /HPF (0-13.0) 06/15/18 16:19 Urine Bacteria (Auto) 1+ /HPF (Negative) 06/15/18 16:19 Hyaline Casts 3 /LPF 06/15/18 16:19 Urine Mucus Few /HPF 06/15/18 16:19 Active Medications - Current Medications Current Medications: Generic Name Dose Route Start Last Admin Trade Name Freq PRN Reason Stop Dose Admin Acetaminophen 650 mg 06/16/18 00:30 Tylenol PO Q4H PRN Pain MILD(1-3)/Fever >100.5/[place] Al Hydrox/Mg Hydrox/Simethicone 30 ml 06/16/18 03:55 06/18/18 08:31 Alum-Mag Hydrox-Simeth 297-262-77lv/5ml PO 30 ml Q4H PRN Administration Indigestion Baclofen 10 mg 06/16/18 10:00 06/19/18 11:56 Lioresal PO 10 mg BID GELY Administration Divalproex Sodium 250 mg 06/16/18 10:00 06/19/18 11:56 Depakote Er PO 250 mg BID GELY Administration Sodium Chloride 1,000 mls @ 100 mls/hr 06/19/18 08:30 Nacl 0.9% 1000 Ml IV DIRECT GELY Melatonin 5 mg 06/16/18 22:00 06/18/18 22:13 Melatonin PO 5 mg QHS GELY Administration Ondansetron HCl 4 mg 06/16/18 00:30 06/18/18 08:31 Zofran IV 4 mg Q8H PRN Administration Nausea And Vomiting Oxycodone/Acetaminophen 1 tab 06/16/18 00:30 06/18/18 05:06 Percocet 5/325 PO 1 tab Q6H PRN Administration Pain, Moderate (4-6) Pantoprazole Sodium 40 mg 06/18/18 10:00 06/18/18 22:13 Protonix IV 06/19/18 23:59 40 mg BID GELY Administration Pantoprazole Sodium 40 mg 06/20/18 10:00 Protonix PO BID GELY Polyethylene Glycol 17 gm 06/18/18 10:00 06/19/18 11:57 Miralax 3350 PO 17 gm QDAY GELY Administration Quetiapine Fumarate 100 mg 06/16/18 10:00 06/19/18 11:56 Seroquel PO 100 mg DAILY GELY Administration Senna/Docusate Sodium 2 tab 06/18/18 10:00 06/19/18 15:36 Senokot S PO Not Given Q12H GELY Sodium Chloride 10 ml 06/16/18 10:00 06/19/18 11:58 Sodium Chloride Flush Syringe 10 Ml IV 10 ml BID GELY Administration Sodium Chloride 10 ml 06/16/18 00:30 Sodium Chloride Flush Syringe 10 Ml IV PRN PRN LINE FLUSH Sucralfate 1 gm 06/18/18 11:30 06/19/18 16:04 Carafate PO 1 gm ACHS GELY Administration
[2018-06-19] MEDS: PROTONIX IV SCH ×2 (18:46→22:05)
[2018-06-19] MEDS: NACL 0.9% 1000 ML 1,000 ML IV SCH (19:59)
[2018-06-19] MEDS: MELATONIN PO SCH (22:05)
[2018-06-20] MEDS: NACL 0.9% 1000 ML 1,000 ML IV SCH (09:02)
[2018-06-20] MEDS: CARAFATE PO SCH ×2 (09:02→14:53)
[2018-06-20] MEDS: SENOKOT S PO SCH (09:02)
[2018-06-20] MEDS: MIRALAX 3350 PO SCH (09:02)
[2018-06-20] MEDS: SODIUM CHLORIDE FLUSH SYRINGE 10 ML IV SCH (09:03)
[2018-06-20] MEDS: LIORESAL PO SCH (09:03)
[2018-06-20] MEDS ORDERED: PROTONIX PO SCH (10:00)
--- NOTE | 2018-06-20 11:16 | Discharge Summary ---
Providers - Providers Date of Admission: 06/15/18 18:46 Attending physician: TONYA PETERS MD 06/17/18 17:39 Physical Therapy Evaluation and Treat [CONS] Routine Comment: Reason For Exam: generalized weakness 06/18/18 08:35 Consult to Physician [CONS] Routine Comment: Consulting Provider: DEE DEE SANDOVAL Physician Instructions: Reason For Exam: NSVT Primary care physician: [employer] Hospitalization Reason for admission: fall Condition: Fair Hospital course: The patient is an 73-year-old male presenting with chief complaint of weakness. The patient admits to diarrhea for the past 4-5 days. Patient has approximately 4-to 5 episodes of diarrhea daily. Has nausea or vomiting. Patient states the same amount of time he said intermittent epigastric abdominal pain. Patient denies fever or recent antibiotic usage. Today patient fell when trying to get out of his chair because he felt too weak. Patient never lost consciousness. Patient gives his pain a score of 4/10 Orthostatic hypotension -changes made to antihypertensive. -IV fluids given Arrhythmia (Sinus bradycardia, NSVT) -Thyroid function tests normal -Donepezil held due to predisposition to bradycardia- this was discussed with the patient - will follow with cardiology outpatient -cardiology recommended conservative management Generalized abdominal pain -Probably due to peptic ulcer disease/constipation -Lipase level low -Protonix, sucralfate and laxatives started -Recommended outpatient cardiology Hx of CAD -Status post 3 vessel CABG, stable Reported diarrhea on admission -Patient denies diarrhea -Stool tests cancelled Hypokalemia -Resolved status post repletion History of dementia -Stable Disposition: DC-01 TO HOME OR SELFCARE Time spent for discharge: 35 mins Core Measure Documentation - Palliative Care Palliative Care/ Comfort Measures: Not Applicable - Core Measures Any of the following diagnoses?: none Exam - Physical Exam Narrative exam: General appearance: Present: no acute distress - EENT Eyes: Present: PERRL, EOM intact ENT: hearing intact, clear oral mucosa - Neck Neck: Present: supple - Respiratory Respiratory effort: normal Respiratory: bilateral: CTA - Cardiovascular Rhythm: regular Heart Sounds: Present: S1 & S2 - Extremities Extremities: No edema - Abdominal General gastrointestinal: soft, tender (generalized), non-distended, normal bowel sounds - Integumentary Integumentary: Present: clear, warm, dry - Neurologic Neurologic: CNII-XII intact - Constitutional Vitals: Temp Pulse Resp BP Pulse Ox 98.1 F 55 L 18 130/66 98 06/20/18 07:37 06/20/18 07:37 06/20/18 07:37 06/20/18 07:37 06/20/18 07:37 Plan Activity: advance as tolerated, fall precautions Diet: low fat Special Instructions: record daily weights, record daily BP diary Follow up with: PRIMARY CAREMD [Primary Care Provider] - 3-5 Days NO SUTHERLAND MD [Staff Physician] - 7 Days Prescriptions: Pantoprazole [Protonix] 40 mg PO QDAY #30 tablet
--- NOTE | 2018-06-20 11:27 | Progress Note ---
Assessment and Plan Syncope thought to hypotension head CT scan reports no acute intracranial abnormalities Dementia NSVT on telemetry 06/17 no further events thus far normal TSH Hx of CAD with prior bypass grafting LVEF 50-55% by echo with mild RV systolic dysfunction. Conservative cardiac management Subjective Date of service: 06/20/18 Interval history: Patient has no complaints. Objective Vital Signs Temp Pulse Pulse Resp BP BP Pulse Ox 06/20/18 07:37 98.1 F 55 L 18 130/66 98 06/20/18 03:41 98.3 F 47 L 16 159/75 96 06/19/18 23:22 98.1 F 46 L 18 114/44 92 06/19/18 20:21 50 L 06/19/18 19:32 98.6 F 50 L 16 114/50 96 06/19/18 16:11 98.6 F 52 L 18 119/60 96 06/19/18 14:25 74 120/62 - Physical Examination General: No Apparent Distress HEENT: Positive: PERRL Neck: Positive: trachea midline Cardiac: Positive: Bradycardia Lungs: Positive: Decreased Breath Sounds Neuro: Positive: Grossly Intact Extremities: Absent: edema
[2018-06-20 11:58] VITALS: BP 110/55
== END 2018-06-20 17:05 | disposition home or self-care (01) | DRG 312 ==
LOC: ED 14:39 → EDBD 14:39 → 4A 18:46
PROVIDERS: ADMIT Internal Medicine; ATTEND Internal Medicine
PROC: 0HQ1XZZ Repair Face Skin, External Approach (ICD-10-PCS; principal; 2018-06-15)
DX: I95.1 Orthostatic hypotension (principal); E44.1 Mild protein-calorie malnutrition; I47.2 Ventricular tachycardia; K52.9 Noninfective gastroenteritis and colitis, unspecified; S01.81XA Laceration without foreign body of other part of head, initial encounter; E87.6 Hypokalemia; E86.0 Dehydration; F03.90 Unspecified dementia, unspecified severity, without behavioral disturbance, psychotic disturbance, mood disturbance, and anxiety; I25.10 Atherosclerotic heart disease of native coronary artery without angina pectoris; K27.9 Peptic ulcer, site unspecified, unspecified as acute or chronic, without hemorrhage or perforation; I10 Essential (primary) hypertension; F31.9 Bipolar disorder, unspecified; M19.90 Unspecified osteoarthritis, unspecified site; W18.30XA Fall on same level, unspecified, initial encounter; Y93.89 Activity, other specified; Y92.89 Other specified places as the place of occurrence of the external cause; Y99.8 Other external cause status; Z68.21 Body mass index [BMI] 21.0-21.9, adult; Z95.1 Presence of aortocoronary bypass graft; Z90.49 Acquired absence of other specified parts of digestive tract; Z87.891 Personal history of nicotine dependence
CPT/HCPCS: 36415; 70450; 72125; 74177; 80048; 80053; 81001; 82270; 82533; 82962; 83036; 83690; 83735; 84439; 84443; 85007; 85014; 85018; 85025; 87045; 87116; 90715; 93005; 93010; 93306; 93880; G0378; C9113; J2405; J3010; J7030; J7040; J7042; Q9967

== ENCOUNTER 2018-06-23 16:51 | Emergency (ER) | payer MEDICARE ==
--- NOTE | 2018-06-23 19:01 | Emergency Department Report ---
ED Dizziness HPI - General Chief Complaint: Dyspnea/Respdistress Stated Complaint: SOB Time Seen by Provider: 06/23/18 18:13 Source: patient, EMS Mode of arrival: Stretcher Limitations: No Limitations - History of Present Illness Initial Comments: 73-year-old male from a personal [facility] presents to ED with complaint of dizziness for several weeks. Patient recently discharged 3 days ago following a fall at home that was thought to be due to dehydration secondary to diarrhea. Patient reports he is still having some loose stools, but denies any diarrhea today. Patient states today he experienced a dizzy spell with standing. States when he gets these dizzy spells, he also experiences associated mild shortness of breath, mild sharp chest pain. Patient denies fever or cough. Patient denies falling or sustaining any type of head injury in the last 3 days since being discharged from the hospital. Denies chest pain or dizziness at this time. MD Complaint: dizziness -: week(s) (2) Description: "room spinning" History of Same: Yes History of Trauma: Yes Severity: moderate Worsens With: position (standing) Associated Symptoms: chest pain, shortness of breath. denies: fever/chills - Related Data Home Medications Medication Instructions Recorded Confirmed Last Taken Baclofen 10 mg PO BID 06/15/18 06/15/18 Unknown Divalproex ER 250 mg PO BID 06/15/18 06/15/18 Unknown Lisinopril 5 mg PO DAILY 06/15/18 06/15/18 Unknown Melatonin 5 mg PO HS 06/15/18 06/15/18 Unknown QUEtiapine 100 mg PO DAILY 06/15/18 06/15/18 Unknown Previous Rx's Medication Instructions Recorded Last Taken Type Pantoprazole [Protonix] 40 mg PO QDAY #30 tablet 06/17/18 Unknown Rx Allergies Allergy/AdvReac Type Severity Reaction Status Date / Time No Known Allergies Allergy Verified 06/15/18 15:12 ED Review of Systems ROS: Stated complaint: SOB Other details as noted in HPI Comment: All other systems reviewed and negative Constitutional: denies: chills, fever Respiratory: shortness of breath. denies: cough Cardiovascular: chest pain. denies: palpitations Gastrointestinal: diarrhea. denies: abdominal pain, nausea, vomiting Neurological: denies: headache ED Past Medical Hx - Past Medical History Previous Medical History?: Yes Hx Hypertension: Yes Hx Psychiatric Treatment: Yes Additional medical history: stomach ulcers - Surgical History Past Surgical History?: Yes Hx Open Heart Surgery: Yes Hx Cholecystectomy: Yes - Social History Smoking Status: Former Smoker Substance Use Type: None - Medications Home Medications: Home Medications Medication Instructions Recorded Confirmed Last Taken Type Baclofen 10 mg PO BID 06/15/18 06/15/18 Unknown History Divalproex ER 250 mg PO BID 06/15/18 06/15/18 Unknown History Lisinopril 5 mg PO DAILY 06/15/18 06/15/18 Unknown History Melatonin 5 mg PO HS 06/15/18 06/15/18 Unknown History QUEtiapine 100 mg PO DAILY 06/15/18 06/15/18 Unknown History Pantoprazole [Protonix] 40 mg PO QDAY #30 tablet 06/17/18 Unknown Rx ED Physical Exam - General Limitations: No Limitations General appearance: alert, in no apparent distress - Head Head exam: Present: atraumatic, normocephalic - Eye Eye exam: Present: normal appearance, PERRL, EOMI - ENT ENT exam: Present: mucous membranes moist - Neck Neck exam: Present: normal inspection - Respiratory Respiratory exam: Present: normal lung sounds bilaterally. Absent: respiratory distress - Cardiovascular Cardiovascular Exam: Present: normal rhythm, bradycardia - GI/Abdominal GI/Abdominal exam: Present: soft. Absent: distended, tenderness - Extremities Exam Extremities exam: Present: normal inspection. Absent: pedal edema, calf tenderness - Neurological Exam Neurological exam: Present: alert, oriented X3, CN II-XII intact. Absent: motor sensory deficit - Psychiatric Psychiatric exam: Present: normal affect, normal mood - Skin Skin exam: Present: warm, dry, intact, normal color ED Course Vital Signs 06/23/18 06/23/18 06/23/18 18:52 18:55 19:00 Temperature 97.9 F Pulse Rate 44 L 47 L 45 L Pulse Rate [ Lying] Pulse Rate [ Sitting] Pulse Rate [ Standing] Respiratory 12 13 17 Rate Blood Pressure 121/58 Blood Pressure [Lying] Blood Pressure 121/58 [Right] Blood Pressure [Sitting] Blood Pressure [Standing] O2 Sat by Pulse 99 99 Oximetry 06/23/18 06/23/18 06/23/18 19:15 19:31 19:45 Temperature Pulse Rate 48 L 48 L 47 L Pulse Rate [ Lying] Pulse Rate [ Sitting] Pulse Rate [ Standing] Respiratory 12 10 L 11 L Rate Blood Pressure 121/58 134/58 119/64 Blood Pressure [Lying] Blood Pressure [Right] Blood Pressure [Sitting] Blood Pressure [Standing] O2 Sat by Pulse 99 100 100 Oximetry 06/23/18 06/23/18 06/23/18 20:00 20:01 20:15 Temperature Pulse Rate 58 L 46 L Pulse Rate [ 46 L Lying] Pulse Rate [ 46 L Sitting] Pulse Rate [ 57 L Standing] Respiratory 15 12 Rate Blood Pressure 147/60 147/60 Blood Pressure 122/57 [Lying] Blood Pressure [Right] Blood Pressure 125/61 [Sitting] Blood Pressure 119/64 [Standing] O2 Sat by Pulse 86 99 Oximetry - Reevaluation(s) Reevaluation #1: 06/23/18 19:27 Hx of sinus ana per chart. HR 40-50s during last admission. Reevaluation #2: 06/23/18 21:47 Patient standing, ambulatory around room. Gait is normal. Given food tray as pt reported he has not eaten all day. No emesis or diarrhea afterward. No dizziness, feels better. ED Medical Decision Making - Lab Data Result diagrams: 06/23/18 18:53 06/23/18 18:53 - EKG Data -: EKG Interpreted by Me EKG shows normal: sinus rhythm, axis, ST-T waves Rate: bradycardia (rate 43) - EKG Data When compared to previous EKG there are: no significant change Interpretation: no acute changes, other (RBBB) - Radiology Data Radiology results: report reviewed, image reviewed - Medical Decision Making 73-year-old male presents to ED with report of dizziness with standing for the last few weeks. Her chloride sedatives and denies prior to ED arrival today. Patient was discharged from this facility 3 days ago following a workup for fall and dizziness. At that time patient found to be dehydrated due to severe diarrhea. The patient does report that he has continued to have some diarrhea although it has improved greatly. Patient was admitted and had a workup that included carotid artery Doppler and echocardiogram that showed 50-55% EF with mild right ventricular dysfunction. Patient with bradycardia today and also during his most recent admission, however today the patient is normotensive. Slightly orthostatic, so IV fluids were given. EKG unchanged, no ST changes present, troponin normal. Patient denies any fall or head trauma since been discharged from the hospital, so CT head was not obtained patient had a normal head CT during last admission on 06/15. Patient with no focal neuro deficits, gait is normal. Workup unremarkable. D-dimer was elevated and CTA chest was obtained which was negative for any evidence of PE. Patient in no respiratory distress, O2 sats normal. No episodes of diarrhea or emesis in the ED. Patient is feeling better at this time. Will discharge home, outpatient follow-up advised. Return precautions given. - Differential Diagnosis arrythmia, ACS, PE, pneumonia, vertigo, orthostatic dizziness Critical care attestation.: If time is entered above; I have spent that time in minutes in the direct care of this critically ill patient, excluding procedure time. ED Disposition Clinical Impression: Dizziness, Dehydration Disposition: - TO HOME OR SELFCARE Is pt being admited?: No Condition: Stable Instructions: Dehydration (ED), Dizziness (ED) Referrals: JOSE LUO [Other] - 3-5 Days PRIMARY CARE, [Referring] - 3-5 Days [facility] [Provider Group] - 3-5 Days Time of Disposition: 21:53
[2018-06-23 19:16] LABS: Basophils % (Auto) 0.3 % (0.0-1.8); Eosinophils # (Auto) 0.3 K/mm3 (0.0-0.4); Eosinophils % (Auto) 4.7 % (0.0-4.3); Hematocrit 33.6 % (35.5-45.6); Hemoglobin 11.2 gm/dl (11.8-15.2); Lymphocytes # (Auto) 2.6 K/mm3 (1.2-5.4); Lymphocytes % (Auto) 37.8 % (13.4-35.0); Mean Corpuscular HGB Conc 33 % (32-34); Mean Corpuscular Volume 96 fl (84-94); Monocytes # (Auto) 0.7 K/mm3 (0.0-0.8); Monocytes % (Auto) 10.6 % (0.0-7.3); Platelet Count 257 K/mm3 (140-440); Red Blood Count 3.49 M/mm3 (3.65-5.03); Red Cell Distribution Width 14.7 % (13.2-15.2)
[2018-06-23 19:24] LABS: INR 1.07 (0.87-1.13)
[2018-06-23 19:25] LABS: Partial Thromboplastin Time 31.5 Sec. (24.2-36.6)
[2018-06-23 19:37] LABS: BUN/Creatinine Ratio 19; Blood Urea Nitrogen 19 mg/dL (9-20); Hemolysis Index 14
[2018-06-23] MEDS ORDERED: ALUM-MAG HYDROX-SIMETH 200-200-20MG/5ML PO ONE (19:37)
[2018-06-23] MEDS ORDERED: NACL 0.9% 1000 ML 1,000 ML IV ONE (19:38)
--- NOTE | 2018-06-23 20:11 | XRay Report ---
PROCEDURE: XR CHEST 1V AP HISTORY: sob FINDINGS: Frontal view of the chest was acquired and demonstrates that the heart is normal in size. S ternal wires attest to prior sternotomy. There is no consolidative pulmonary infiltrate. The pulmonary vasculature is within normal limits. IMPRESSION: No active disease in the chest This document is electronically signed by Ky Trevizo MD., Jun 23 2018 08:08:58 PM ET
[2018-06-23 20:16] LABS: Bilirubin,Urine NEG (Negative); Blood,Urine NEG (Negative); Color,Urine Yellow (Yellow); Mucus,Urine FEW /HPF; Protein,Urine <15 mg/dL mg/dL (Negative); Urobilinogen,Urine < 2.0 mg/dL (<2.0); WBC,Urine < 1.0 /HPF (0.0-6.0)
[2018-06-23 20:17] VITALS: BP 147/60
--- NOTE | 2018-06-23 21:29 | Cat Scan Report ---
PROCEDURE: CT ANGIO CHEST TECHNIQUE: Computerized tomographic angiography of the chest was performed during the IV injection o f iodinated nonionic contrast including image processing. The image data was postprocessed using 2-d imensional multiplanar reformatted (MPR) and 3-dimensional (MIP and/or volume rendered) techniques. A utomated exposure control, adjustment of mA and/or kV according to patient size, or iterative reconst ruction dose optimization techniques were utilized. HISTORY: dizziness, sob COMPARISONS: None . FINDINGS: Pulmonary out flow tract, right and left main pulmonary arteries and the proximal branches: Clear, n o filling defects seen to suggest pulmonary embolus. Pericardium: No evidence of pericardial effusion. Thoracic aorta: Atherosclerotic changes visualized, no evidence of aneurysmal dilatation or dissecti on. Coronary arteries: Heavily calcified indicating atherosclerotic disease. Mediastinum and hilar regions: Non specific subcentimeter lymph nodes are visualized. No pathologica lly enlarged lymph nodes or masses are identified. Lung [place]: Small amount of dependent atelectasis visualized. There is a small peripheral density in the left lower lobe laterally measuring approximately 5 mm. This appears dense, 171 Hounsfield units suggesting a partially calcified granuloma. Upper abdomen: Gallbladder is surgically absent. Renal cortical cysts appear to be visualized. No ac temi abnormalities are seen in the upper abdomen. Other: No acute bone abnormalities are identified.. There has been previous thoracotomy. IMPRESSION: No evidence of pulmonary embolus. Prior thoracotomy. Minimal dependent atelectasis. Small dense nodule left lower lobe as described suggesting a partially calcified granuloma. This document is electronically signed by Kali Watson MD., Jun 23 2018 09:27:26 PM ET
== END 2018-06-23 23:18 | disposition home or self-care (01) ==
LOC: ED 16:51
DX: E86.0 Dehydration (principal); R42 Dizziness and giddiness; I10 Essential (primary) hypertension; Z90.49 Acquired absence of other specified parts of digestive tract; Z87.891 Personal history of nicotine dependence
CPT/HCPCS: 36415; 71045; 71275; 80048; 81001; 84484; 85025; 85379; 85610; 85730; 93005; 93010; 96360; 99285; J7030; Q9967

== ENCOUNTER 2018-06-30 13:54 | Emergency (ER) | payer MEDICARE ==
--- NOTE | 2018-06-30 14:02 | Emergency Department Report ---
ED Altered Mental Status HPI - General Stated Complaint: AMS/FALL Time Seen by Provider: 06/30/18 14:01 Source: patient, EMS Mode of arrival: Stretcher Limitations: No Limitations - History of Present Illness Initial Comments: Patient is a 73-year-old male patient that presents to the emergency room with complaints of fall and facial pain. She states he fell sometime in the middle of night but is not sure when. Patient states that he doesn't remember falling. Patient states he woke up to get out of bed and the next thing he woke up and must fell overnight. Patient states he is having pain around his right eye after falling. Patient states he doesn't remember fallen but knows that he fell. Patient is complaining of bilateral hand pain and right face pain. Patient states the pain is a 4 out of 10. Patient is A&O 3. Patient states he knows he fell but is not sure what exactly happened. Patient states the possibility of concussion and loss of consciousness. MD Complaint: other (fall andposs concussion) -: Sudden Severity: moderate Consistency of Symptoms: constant Context: trauma Associated Symptoms: headaches. denies: chest pain, cough, diaphoresis, fever/chills, malaise, nausea/vomiting, rash, seizure, shortness of breath, syncope, foul smelling urine, difficulty walking, diarrhea, incontinence - Related Data Home Medications Medication Instructions Recorded Confirmed Last Taken Baclofen 10 mg PO BID 06/15/18 06/15/18 Unknown Divalproex ER 250 mg PO BID 06/15/18 06/15/18 Unknown Lisinopril 5 mg PO DAILY 06/15/18 06/15/18 Unknown Melatonin 5 mg PO HS 06/15/18 06/15/18 Unknown QUEtiapine 100 mg PO DAILY 06/15/18 06/15/18 Unknown Previous Rx's Medication Instructions Recorded Last Taken Type Pantoprazole [Protonix] 40 mg PO QDAY #30 tablet 06/17/18 Unknown Rx Allergies Allergy/AdvReac Type Severity Reaction Status Date / Time No Known Allergies Allergy Verified 06/15/18 15:12 ED Review of Systems ROS: Stated complaint: AMS/FALL Other details as noted in HPI Constitutional: denies: chills, fever Eyes: denies: eye pain, eye discharge, vision change ENT: denies: ear pain, throat pain Respiratory: denies: cough, shortness of breath, wheezing Cardiovascular: denies: chest pain, palpitations Endocrine: no symptoms reported Gastrointestinal: denies: abdominal pain, nausea, diarrhea Genitourinary: denies: urgency, dysuria Musculoskeletal: denies: back pain, joint swelling, arthralgia Skin: denies: rash, lesions Neurological: headache, confusion. denies: weakness, paresthesias Psychiatric: denies: anxiety, depression Hematological/Lymphatic: denies: easy bleeding, easy bruising ED Past Medical Hx - Past Medical History Previous Medical History?: Yes Hx Hypertension: Yes Hx Psychiatric Treatment: Yes Additional medical history: stomach ulcers - Surgical History Past Surgical History?: Yes Hx Open Heart Surgery: Yes Hx Cholecystectomy: Yes - Family History Family history: no significant - Social History Smoking Status: Former Smoker Substance Use Type: None - Medications Home Medications: Home Medications Medication Instructions Recorded Confirmed Last Taken Type Baclofen 10 mg PO BID 06/15/18 06/15/18 Unknown History Divalproex ER 250 mg PO BID 06/15/18 06/15/18 Unknown History Lisinopril 5 mg PO DAILY 06/15/18 06/15/18 Unknown History Melatonin 5 mg PO HS 06/15/18 06/15/18 Unknown History QUEtiapine 100 mg PO DAILY 06/15/18 06/15/18 Unknown History Pantoprazole [Protonix] 40 mg PO QDAY #30 tablet 06/17/18 Unknown Rx ED Physical Exam - General Limitations: No Limitations General appearance: alert, in no apparent distress - Head Head exam: Present: normocephalic, other (right sided hematoma to the right temporal region and right eye. Patient also has a right upper lid laceration/abrasion) - Eye Eye exam: Present: normal appearance, PERRL Pupils: Present: normal accommodation - ENT ENT exam: Present: mucous membranes moist - Neck Neck exam: Present: normal inspection - Respiratory Respiratory exam: Present: normal lung sounds bilaterally. Absent: respiratory distress - Cardiovascular Cardiovascular Exam: Present: regular rate, normal rhythm. Absent: systolic murmur, diastolic murmur, rubs, gallop - GI/Abdominal GI/Abdominal exam: Present: soft, normal bowel sounds - Rectal Rectal exam: Present: deferred - Extremities Exam Extremities exam: Present: normal inspection - Back Exam Back exam: Present: normal inspection - Neurological Exam Neurological exam: Present: alert, oriented X3 - Psychiatric Psychiatric exam: Present: normal affect, normal mood - Skin Skin exam: Present: warm, dry, normal color, abrasion (right temporal abrasion), ecchymosis (to the right eye). Absent: rash - Assessment Assessment Interval: Baseline - Level of Consciousness 1a. Level of Consciousness: alert/keenly responsive - LOC Questions 1b. LOC Questions: answers both correctly - LOC Command 1c. LOC Commands: performs tasks correctly - Best Gaze 2. Best Gaze: normal - Visual 3. Visual: no visual loss - Facial Palsy 4. Facial Palsy: normal symmetrical movement - Motor Arm 5a. Motor Arm Left: no drift 5b. Motor Arm Right: no drift - Motor Leg 6a. Motor Leg Left: no drift 6b. Motor Leg Right: no drift - Limb Ataxia 7. Limb Ataxia: absent - Sensory 8. Sensory: normal - Best Language 9. Best Language: no aphasia - Dysarthria 10. Dysarthria: normal - Extinction and Inattention 11. Extinction/Inattention: no abnormality - Scoring Total Score: 0 Stroke Severity: No Stroke Symptoms ED Course Vital Signs 06/30/18 06/30/18 06/30/18 14:09 14:14 14:22 Temperature 97.6 F Pulse Rate 67 70 Respiratory 12 12 15 Rate Blood Pressure 110/59 Blood Pressure 110/59 [Left] O2 Sat by Pulse 95 95 98 Oximetry 06/30/18 06/30/18 06/30/18 14:47 15:01 15:15 Temperature Pulse Rate 60 55 L 55 L Respiratory 10 L 9 L 20 Rate Blood Pressure Blood Pressure [Left] O2 Sat by Pulse 98 99 100 Oximetry 06/30/18 06/30/18 06/30/18 15:31 15:45 16:01 Temperature Pulse Rate 61 60 73 Respiratory 14 14 17 Rate Blood Pressure 114/84 140/72 Blood Pressure [Left] O2 Sat by Pulse 100 Oximetry 06/30/18 06/30/18 16:15 16:31 Temperature Pulse Rate 61 65 Respiratory 14 13 Rate Blood Pressure 137/71 162/72 Blood Pressure [Left] O2 Sat by Pulse Oximetry - Reevaluation(s) Reevaluation #1: Discussed all results patient. Discussed plan of care and transfer the patient. Patient agrees with plan of care and transfer. We will consult [facility]. 06/30/18 16:30 - Consultations Consultation #1: [facility] consulted. Dr. Melo has accepted the patient to be transferred ER to ER. 06/30/18 16:40 - Lab Data Result diagrams: 06/30/18 14:09 06/30/18 14:09 Lab Results 06/30/18 06/30/18 06/30/18 Range/Units 14:09 14:09 14:09 WBC 10.0 (4.5-11.0) K/mm3 RBC 3.97 (3.65-5.03) M/mm3 Hgb 12.7 (11.8-15.2) gm/dl Hct 36.7 (35.5-45.6) % MCV 93 (84-94) fl MCH 32 (28-32) pg MCHC 35 H (32-34) % RDW 14.8 (13.2-15.2) % Plt Count 232 (140-440) K/mm3 Lymph % (Auto) 19.0 (13.4-35.0) % Collier % (Auto) 10.6 H (0.0-7.3) % Eos % (Auto) 0.7 (0.0-4.3) % Baso % (Auto) 1.4 (0.0-1.8) % Lymph # 1.9 (1.2-5.4) K/mm3 Collier # 1.1 H (0.0-0.8) K/mm3 Eos # 0.1 (0.0-0.4) K/mm3 Baso # 0.1 (0.0-0.1) K/mm3 Seg Neutrophils % 68.3 (40.0-70.0) % Seg Neutrophils # 6.8 (1.8-7.7) K/mm3 Sodium 141 (137-145) mmol/L Potassium 4.4 (3.6-5.0) mmol/L Chloride 102.2 (98-107) mmol/L Carbon Dioxide 22 (22-30) mmol/L Anion Gap 21 mmol/L BUN 18 (9-20) mg/dL Creatinine 1.1 (0.8-1.5) mg/dL Estimated GFR > 60 ml/min BUN/Creatinine Ratio 16 % Glucose 106 H (75-100) mg/dL Lactic Acid 1.60 (0.7-2.0) mmol/L Calcium 9.5 (8.4-10.2) mg/dL Total Bilirubin 0.50 (0.1-1.2) mg/dL AST 21 (5-40) units/L ALT 10 (7-56) units/L Alkaline Phosphatase 81 (35-129) units/L Total Creatine Kinase (55-170) units/L Troponin T (0.00-0.029) ng/mL Total Protein 7.4 (6.3-8.2) g/dL Albumin 4.2 (3.9-5) g/dL Albumin/Globulin Ratio 1.3 % Urine Color (Yellow) Urine Turbidity (Clear) Urine pH (5.0-7.0) Ur Specific [place] (1.003-1.030) Urine Protein (Negative) mg/dL Urine Glucose (UA) (Negative) mg/dL Urine Ketones (Negative) mg/dL Urine Blood (Negative) Urine Nitrite (Negative) Urine Bilirubin (Negative) Urine Urobilinogen (<2.0) mg/dL Ur Leukocyte Esterase (Negative) Urine WBC (Auto) (0.0-6.0) /HPF Urine RBC (Auto) (0.0-6.0) /HPF Hyaline Casts /LPF Urine Mucus /HPF Salicylates (2.8-20.0) mg/dL Urine Opiates Screen Urine Methadone Screen Acetaminophen (10.0-30.0) ug/mL Ur Barbiturates Screen Ur Phencyclidine Scrn Ur Amphetamines Screen U Benzodiazepines Scrn Urine Cocaine Screen U Marijuana (THC) Screen Drugs of Abuse Note Plasma/Serum Alcohol (0-0.07) % 06/30/18 06/30/18 06/30/18 Range/Units 14:09 14:09 14:09 WBC (4.5-11.0) K/mm3 RBC (3.65-5.03) M/mm3 Hgb (11.8-15.2) gm/dl Hct (35.5-45.6) % MCV (84-94) fl MCH (28-32) pg MCHC (32-34) % RDW (13.2-15.2) % Plt Count (140-440) K/mm3 Lymph % (Auto) (13.4-35.0) % Collier % (Auto) (0.0-7.3) % Eos % (Auto) (0.0-4.3) % Baso % (Auto) (0.0-1.8) % Lymph # (1.2-5.4) K/mm3 Collier # (0.0-0.8) K/mm3 Eos # (0.0-0.4) K/mm3 Baso # (0.0-0.1) K/mm3 Seg Neutrophils % (40.0-70.0) % Seg Neutrophils # (1.8-7.7) K/mm3 Sodium (137-145) mmol/L Potassium (3.6-5.0) mmol/L Chloride (98-107) mmol/L Carbon Dioxide (22-30) mmol/L Anion Gap mmol/L BUN (9-20) mg/dL Creatinine (0.8-1.5) mg/dL Estimated GFR ml/min BUN/Creatinine Ratio % Glucose (75-100) mg/dL Lactic Acid (0.7-2.0) mmol/L Calcium (8.4-10.2) mg/dL Total Bilirubin (0.1-1.2) mg/dL AST (5-40) units/L ALT (7-56) units/L Alkaline Phosphatase (35-129) units/L Total Creatine Kinase 111 (55-170) units/L Troponin T < 0.010 (0.00-0.029) ng/mL Total Protein (6.3-8.2) g/dL Albumin (3.9-5) g/dL Albumin/Globulin Ratio % Urine Color (Yellow) Urine Turbidity (Clear) Urine pH (5.0-7.0) Ur Specific [place] (1.003-1.030) Urine Protein (Negative) mg/dL Urine Glucose (UA) (Negative) mg/dL Urine Ketones (Negative) mg/dL Urine Blood (Negative) Urine Nitrite (Negative) Urine Bilirubin (Negative) Urine Urobilinogen (<2.0) mg/dL Ur Leukocyte Esterase (Negative) Urine WBC (Auto) (0.0-6.0) /HPF Urine RBC (Auto) (0.0-6.0) /HPF Hyaline Casts /LPF Urine Mucus /HPF Salicylates 0.7 L (2.8-20.0) mg/dL Urine Opiates Screen Urine Methadone Screen Acetaminophen < 5.0 L (10.0-30.0) ug/mL Ur Barbiturates Screen Ur Phencyclidine Scrn Ur Amphetamines Screen U Benzodiazepines Scrn Urine Cocaine Screen U Marijuana (THC) Screen Drugs of Abuse Note Plasma/Serum Alcohol (0-0.07) % 06/30/18 06/30/18 06/30/18 Range/Units 14:09 15:43 15:43 WBC (4.5-11.0) K/mm3 RBC (3.65-5.03) M/mm3 Hgb (11.8-15.2) gm/dl Hct (35.5-45.6) % MCV (84-94) fl MCH (28-32) pg MCHC (32-34) % RDW (13.2-15.2) % Plt Count (140-440) K/mm3 Lymph % (Auto) (13.4-35.0) % Collier % (Auto) (0.0-7.3) % Eos % (Auto) (0.0-4.3) % Baso % (Auto) (0.0-1.8) % Lymph # (1.2-5.4) K/mm3 Collier # (0.0-0.8) K/mm3 Eos # (0.0-0.4) K/mm3 Baso # (0.0-0.1) K/mm3 Seg Neutrophils % (40.0-70.0) % Seg Neutrophils # (1.8-7.7) K/mm3 Sodium (137-145) mmol/L Potassium (3.6-5.0) mmol/L Chloride (98-107) mmol/L Carbon Dioxide (22-30) mmol/L Anion Gap mmol/L BUN (9-20) mg/dL Creatinine (0.8-1.5) mg/dL Estimated GFR ml/min BUN/Creatinine Ratio % Glucose (75-100) mg/dL Lactic Acid (0.7-2.0) mmol/L Calcium (8.4-10.2) mg/dL Total Bilirubin (0.1-1.2) mg/dL AST (5-40) units/L ALT (7-56) units/L Alkaline Phosphatase (35-129) units/L Total Creatine Kinase (55-170) units/L Troponin T (0.00-0.029) ng/mL Total Protein (6.3-8.2) g/dL Albumin (3.9-5) g/dL Albumin/Globulin Ratio % Urine Color Yellow (Yellow) Urine Turbidity Slightly-cloudy (Clear) Urine pH 6.0 (5.0-7.0) Ur Specific [place] 1.017 (1.003-1.030) Urine Protein 100 mg/dl (Negative) mg/dL Urine Glucose (UA) Neg (Negative) mg/dL Urine Ketones Tr (Negative) mg/dL Urine Blood Neg (Negative) Urine Nitrite Neg (Negative) Urine Bilirubin Neg (Negative) Urine Urobilinogen < 2.0 (<2.0) mg/dL Ur Leukocyte Esterase Neg (Negative) Urine WBC (Auto) 1.0 (0.0-6.0) /HPF Urine RBC (Auto) 2.0 (0.0-6.0) /HPF Hyaline Casts 1 /LPF Urine Mucus Few /HPF Salicylates (2.8-20.0) mg/dL Urine Opiates Screen Presumptive negative Urine Methadone Screen Presumptive negative Acetaminophen (10.0-30.0) ug/mL Ur Barbiturates Screen Presumptive negative Ur Phencyclidine Scrn Presumptive negative Ur Amphetamines Screen Presumptive negative U Benzodiazepines Scrn Presumptive negative Urine Cocaine Screen Presumptive negative U Marijuana (THC) Screen Presumptive negative Drugs of Abuse Note Disclamer Plasma/Serum Alcohol < 0.01 (0-0.07) % - EKG Data -: EKG Interpreted by Ma EKG shows normal: sinus rhythm, axis, intervals, ST-T waves Rate: normal Interpretation: other (right bundle-branch block noted) - Radiology Data Radiology results: report reviewed, image reviewed PROCEDURE: XR CHEST 1V AP TECHNIQUE: AP chest HISTORY: Altered Mental Status COMPARISONS: Chest x-ray June 23, 2018 FINDINGS: Trachea midline. Status post sternotomy. Heart size normal No pneumothorax. No acute airspace disease. No effusion Mild interstitial prominence at the bases stable Bowel noted bilaterally beneath the diaphragm IMPRESSION: No acute pulmonary disease.. PROCEDURE: CT HEAD/BRAIN WO CON TECHNIQUE: Axial images of the head obtained without intravenous contrast. HISTORY: Altered Mental Status COMPARISONS: June 15 FINDINGS: Age-related loss of brain volume. No acute intracranial hemorrhage or hematoma. No intracranial mass or mass effect. No edema or sulcal effacement. Mild periventricular ischemic changes. Atherosclerotic calcifications. Maxillofacial fractures, reported separately. No acute skull fracture. IMPRESSION: Age-related loss of brain volume and chronic periventricular ischemic changes. No acute intracranial injury. Maxillofacial fractures, reported separately.. PROCEDURE: CT FACIAL BONES WO CON TECHNIQUE: Computerized tomography of the facial bones and soft tissues with axial and coronal sections performed from the cranial aspect of the frontal sinuses to the caudal portion of the mandible without contrast material. Automated exposure control, adjustment of mA and/or kV according to patient size, or iterative reconstruction dose optimization techniques were utilized. CT DOSE LENGTH PRODUCT: 619.2 mGycm HISTORY: facial trauma COMPARISONS: None . FINDINGS: Bones: There is a comminuted fracture of the right inferior orbital wall as well as the lateral wall of the right maxillary sinus. There is a comminuted fracture of the right zygomatic process. There is a fracture of the right orbital surface of the zygomatic bone with mild lateral angulation. Paranasal sinuses: There is an internal air fluid level within the right maxillary sinus . Soft tissues: Right periorbital soft tissue swelling. No intraconal involvement. Foci of subcutaneous air anterior to the right orbit, and within the right herbicide service sales representative space. Other: None . IMPRESSION: Comminuted fracture of the right inferior orbital wall and lateral wall of the right maxillary sinus. Comment fracture of the right-sided pneumonic process. Fracture of the right orbital surface of the zygomatic bone with mild lateral angulation. - Medical Decision Making Patient is a 73-year-old mellitus emergency room for facial trauma and fall. Patient's had a CT of the face done and it shows multiple fractures. Patient will be transferred to [facility] for an ER to ER transfer. Patient has been accepted by the ER Dr. Thomas. Patient found a right upper lid laceration and abrasion. Because the laceration is on the right orbit this is considered a open fracture. Patient given Ancef and tetanus. - Differential Diagnosis facial fx. head injury, abrasion. lac. concussion. fall Critical Care Time: Yes Critical care attestation.: If time is entered above; I have spent that time in minutes in the direct care of this critically ill patient, excluding procedure time. Critical Care Time: 45 minutes ED Disposition Clinical Impression: Fall Qualifiers: Encounter type: initial encounter Qualified Code(s): W19.XXXA - Unspecified fall, initial encounter Concussion Qualifiers: Encounter type: initial encounter Loss of consciousness presence/duration: with LOC of unspecified duration Qualified Code(s): S06.0X9A - Concussion with loss of consciousness of unspecified duration, initial encounter Orbital fracture Qualifiers: Encounter type: initial encounter Fracture type: open Qualified Code(s): S02.80XB - Fracture of other specified skull and facial bones, unspecified side, initial encounter for open fracture Head injury Qualifiers: Encounter type: initial encounter Qualified Code(s): S09.90XA - Unspecified injury of head, initial encounter Zygoma fracture Qualifiers: Encounter type: initial encounter Fracture type: closed Laterality: right Qualified Code(s): S02.40EA - Zygomatic fracture, right side, initial encounter for closed fracture Facial abrasion Qualifiers: Encounter type: initial encounter Qualified Code(s): S00.81XA - Abrasion of other part of head, initial encounter Eyelid laceration, right Qualifiers: Encounter type: initial encounter Qualified Code(s): S01.111A - Laceration without foreign body of right eyelid and periocular area, initial encounter Disposition: DC/TX-70 ANOTHER TYPE HLTHCARE Is pt being admited?: No Does the pt Need Aspirin: No Condition: Critical Referrals: JENS AVENDAÑO MD [Primary Care Provider] - 3-5 Days Time of Disposition: 16:44
[2018-06-30 14:37] LABS: Basophils # (Auto) 0.1 K/mm3 (0.0-0.1); Basophils % (Auto) 1.4 % (0.0-1.8); Eosinophils # (Auto) 0.1 K/mm3 (0.0-0.4); Eosinophils % (Auto) 0.7 % (0.0-4.3); Hematocrit 36.7 % (35.5-45.6); Hemoglobin 12.7 gm/dl (11.8-15.2); Lymphocytes # (Auto) 1.9 K/mm3 (1.2-5.4); Mean Corpuscular HGB Conc 35 % (32-34); Mean Corpuscular Volume 93 fl (84-94); Monocytes # (Auto) 1.1 K/mm3 (0.0-0.8); Monocytes % (Auto) 10.6 % (0.0-7.3); Platelet Count 232 K/mm3 (140-440); Red Blood Count 3.97 M/mm3 (3.65-5.03); Red Cell Distribution Width 14.8 % (13.2-15.2)
--- NOTE | 2018-06-30 14:55 | Cat Scan Report ---
PROCEDURE: CT HEAD/BRAIN WO CON TECHNIQUE: Axial images of the head obtained without intravenous contrast. HISTORY: Altered Mental Status COMPARISONS: June 15 FINDINGS: Age-related loss of brain volume. No acute intracranial hemorrhage or hematoma. No intracranial mass or mass effect. No edema or sulcal effacement. Mild periventricular ischemic changes. Atherosclerotic calcifications. Maxillofacial fractures, reported separately. No acute skull fracture. IMPRESSION: Age-related loss of brain volume and chronic periventricular ischemic changes. No acute intracranial injury. Maxillofacial fractures, reported separately.. This document is electronically signed by Nick Piedra MD., Jun 30 2018 02:53:46 PM ET
[2018-06-30 15:06] LABS: Alanine Aminotransferase 10 units/L (7-56); Albumin 4.2 g/dL (3.9-5); BUN/Creatinine Ratio 16; Blood Urea Nitrogen 18 mg/dL (9-20); Calcium 9.5 mg/dL (8.4-10.2); Hemolysis Index 4
--- NOTE | 2018-06-30 15:32 | XRay Report ---
PROCEDURE: XR CHEST 1V AP TECHNIQUE: AP chest HISTORY: Altered Mental Status COMPARISONS: Chest x-ray June 23, 2018 FINDINGS: Trachea midline. Status post sternotomy. Heart size normal No pneumothorax. No acute airspace disease. No effusion Mild interstitial prominence at the bases stable Bowel noted bilaterally beneath the diaphragm IMPRESSION: No acute pulmonary disease.. This document is electronically signed by Dawit Low MD., Jun 30 2018 03:30:23 PM ET
--- NOTE | 2018-06-30 16:00 | Cat Scan Report ---
PROCEDURE: CT FACIAL BONES WO CON TECHNIQUE: Computerized tomography of the facial bones and soft tissues with axial and coronal secti ons performed from the cranial aspect of the frontal sinuses to the caudal portion of the mandible wi thout contrast material. Automated exposure control, adjustment of mA and/or kV according to patient size, or iterative reconstruction dose optimization techniques were utilized. CT DOSE LENGTH PRODUCT: 619.2 mGycm HISTORY: facial trauma COMPARISONS: None . FINDINGS: Bones: There is a comminuted fracture of the right inferior orbital wall as well as the lateral wall of the right maxillary sinus. There is a comminuted fracture of the right zygomatic process. There i s a fracture of the right orbital surface of the zygomatic bone with mild lateral angulation. Paranasal sinuses: There is an internal air fluid level within the right maxillary sinus . Soft tissues: Right periorbital soft tissue swelling. No intraconal involvement. Foci of subcutaneou s air anterior to the right orbit, and within the right rug designer space. Other: None . IMPRESSION: Comminuted fracture of the right inferior orbital wall and lateral wall of the right maxillary sinus. Comment fracture of the right-sided pneumonic process. Fracture of the right orbital surface of the zygomatic bone with mild lateral angulation. This document is electronically signed by Valerie Albarado MD., Jun 30 2018 03:58:16 PM ET
[2018-06-30 16:11] LABS: Bilirubin,Urine NEG (Negative); Blood,Urine NEG (Negative); Color,Urine Yellow (Yellow); Hyaline Casts,Urine 1 /LPF; Mucus,Urine FEW /HPF; Urobilinogen,Urine < 2.0 mg/dL (<2.0)
[2018-06-30 16:27] LABS: Amphetamine Screen,Urine PRESUMPTIVE NEGATIVE; Benzodiazepines Screen,Urine PRESUMPTIVE NEGATIVE; Cannabinoid Screen,Urine PRESUMPTIVE NEGATIVE; Cocaine Screen,Urine PRESUMPTIVE NEGATIVE; Methadone Screen,Urine PRESUMPTIVE NEGATIVE; Opiate Screen,Urine PRESUMPTIVE NEGATIVE
[2018-06-30] MEDS ORDERED: BOOSTRIX IM ONE (17:23)
[2018-06-30] MEDS ORDERED: ceFAZolin 2 GM in NACL 0.9% 100 ML IV ONE (18:00)
[2018-06-30 19:24] VITALS: BP 108/67
== END 2018-06-30 20:18 | disposition other institution (70) ==
LOC: ED 13:54
DX: S06.0X9A Concussion with loss of consciousness of unspecified duration, initial encounter (principal); S02.81XA Fracture of other specified skull and facial bones, right side, initial encounter for closed fracture; S02.40EA Zygomatic fracture, right side, initial encounter for closed fracture; I10 Essential (primary) hypertension; Z90.49 Acquired absence of other specified parts of digestive tract; Z87.891 Personal history of nicotine dependence; W06.XXXA Fall from bed, initial encounter; Y93.89 Activity, other specified; Y92.098 Other place in other non-institutional residence as the place of occurrence of the external cause; Y99.8 Other external cause status
CPT/HCPCS: 36415; 70450; 70486; 71045; 80053; 80307; 81001; 82140; 82550; 84484; 85025; 93005; 93010; 96365; 99291; G0480; J0690; 80320

== ENCOUNTER 2018-12-25 10:54 | Emergency (ER) | payer MEDICARE ==
--- NOTE | 2018-12-25 11:41 | Emergency Department Report ---
ED Fall HPI - General Chief Complaint: Fall Stated Complaint: FALL Time Seen by Provider: 12/25/18 11:29 Source: EMS Mode of arrival: Stretcher - History of Present Illness Initial Comments: Patient is 73 years old male with history of CABG, dementia hypertension. Patient brought to the emergency room via EMS for evaluation after patient sustained a fall this morning. Patient stated that he was walking across the room when he felt that his knee gave out on him and he lost his balance and he fell landed on his right side. Patient is complaining of a laceration to the right eyebrow and pain to the right knee. Patient denied any headache, loss of consciousness, neck pain, chest pain or shortness of breath. MD Complaint: fall -: This morning Fall From: standing Fall Witnessed: yes, by living facility s Place Fall Occurred: alf/SNF Loss of Consciousness: none Prolonged Down Time?: no Symptoms Prior to Fall: none Severity: moderate Context: tripped/slipped Associated Symptoms: denies - Related Data Home Medications Medication Instructions Recorded Confirmed Last Taken Divalproex ER 250 mg PO BID 06/15/18 06/30/18 Unknown Lisinopril 5 mg PO DAILY 06/15/18 06/30/18 Unknown Melatonin 5 mg PO HS 06/15/18 06/30/18 Unknown QUEtiapine 100 mg PO DAILY 06/15/18 06/30/18 Unknown Previous Rx's Medication Instructions Recorded Last Taken Type Pantoprazole [Protonix] 40 mg PO QDAY #30 tablet 06/17/18 Unknown Rx Allergies Allergy/AdvReac Type Severity Reaction Status Date / Time No Known Allergies Allergy Verified 06/15/18 15:12 ED Review of Systems ROS: Stated complaint: FALL Other details as noted in HPI Comment: All other systems reviewed and negative Constitutional: denies: chills, fever Respiratory: denies: cough, shortness of breath, SOB with exertion, wheezing Cardiovascular: denies: chest pain, palpitations Gastrointestinal: denies: abdominal pain, nausea Musculoskeletal: denies: back pain ED Past Medical Hx - Past Medical History Hx Hypertension: Yes Hx Psychiatric Treatment: Yes Hx Dementia: Yes Additional medical history: stomach ulcers - Surgical History Hx Open Heart Surgery: Yes Hx Cholecystectomy: Yes - Social History Smoking Status: Never Smoker - Medications Home Medications: Home Medications Medication Instructions Recorded Confirmed Last Taken Type Divalproex ER 250 mg PO BID 06/15/18 06/30/18 Unknown History Lisinopril 5 mg PO DAILY 06/15/18 06/30/18 Unknown History Melatonin 5 mg PO HS 06/15/18 06/30/18 Unknown History QUEtiapine 100 mg PO DAILY 06/15/18 06/30/18 Unknown History Pantoprazole [Protonix] 40 mg PO QDAY #30 tablet 06/17/18 06/30/18 Unknown Rx ED Physical Exam - General Limitations: No Limitations General appearance: alert, in no apparent distress - Head Head exam: Present: other (3 cm laceration to right eyebrow) - ENT ENT exam: Present: normal exam, normal orophraynx, mucous membranes moist - Neck Neck exam: Present: normal inspection, full ROM. Absent: tenderness, meningismus, lymphadenopathy, thyromegaly - Respiratory Respiratory exam: Present: normal lung sounds bilaterally - Cardiovascular Cardiovascular Exam: Present: regular rate, normal rhythm, normal heart sounds - GI/Abdominal GI/Abdominal exam: Present: soft, normal bowel sounds. Absent: distended, tenderness, guarding, rebound, rigid, organomegaly, mass, bruit, pulsatile mass, hernia - Extremities Exam Extremities exam: Present: normal inspection, full ROM, normal capillary refill. Absent: pedal edema, calf tenderness - Back Exam Back exam: Present: normal inspection, full ROM. Absent: CVA tenderness (R), CVA tenderness (L), muscle spasm, paraspinal tenderness, vertebral tenderness - Neurological Exam Neurological exam: Present: alert, oriented X3, CN II-XII intact. Absent: motor sensory deficit ED Course Vital Signs 12/25/18 12/25/18 12/25/18 11:10 11:28 12:12 Temperature 98.7 F Pulse Rate 90 Respiratory 18 Rate Blood Pressure 109/52 116/49 O2 Sat by Pulse 100 100 Oximetry 12/25/18 12:53 Temperature Pulse Rate Respiratory Rate Blood Pressure O2 Sat by Pulse 98 Oximetry - Laceration /Wound Repair Face Wound Location: face Wound Length (cm): 3 Wound's Depth, Shape: irregular Wound Explored: clean Betadine Prep?: Yes Anesthesia: 1% Lidocaine Wound Debrided: minimal Wound Repaired With: sutures Suture Size/Type: 5:0 Number of Sutures: 3 Sterile Dressing Applied?: Yes ED Medical Decision Making - Lab Data Result diagrams: 12/25/18 12:15 11/06/19 12:15 - EKG Data -: EKG Interpreted by Me EKG shows normal: sinus rhythm Rate: bradycardia - EKG Data Interpretation: no acute changes - Radiology Data Radiology results: report reviewed - Medical Decision Making Patient is 73 years old male with history of CABG, dementia hypertension. Patient brought to the emergency room via EMS for evaluation after patient sustained a fall this morning. Patient stated that he was walking across the room when he felt that his knee gave out on him and he lost his balance and he fell landed on his right side. Patient is complaining of a laceration to the right eyebrow and pain to the right knee. Patient denied any headache, loss of consciousness, neck pain, chest pain or shortness of breath. Patient remained asymptomatic in the ER. CT brain, CT cervical spine is negative for acute finding. Right knee x-ray is unremarkable. Labs reviewed and is negative including a negative troponin. EKG is unremarkable except for sinus bradycardia. Right eyebrow laceration repaired. Patient received a tetanus immunization. Patient advised to follow-up with his primary care physician in the next 2-3 days and to return to the ER if symptoms are not improved. Critical care attestation.: If time is entered above; I have spent that time in minutes in the direct care of this critically ill patient, excluding procedure time. ED Disposition Clinical Impression: Facial laceration, Closed head injury, Fall, Contusion of knee, right Disposition: [id number] TO HOME OR SELFCARE Is pt being admited?: No Condition: Stable Instructions: Fall Prevention for Older Adults (ED), Contusion in Adults (ED), Laceration (ED) Referrals: PRIMARY CARE, [Referring] - 3-5 Days
[2018-12-25 12:26] LABS: Basophils # (Auto) 0.1 K/mm3 (0.0-0.1); Basophils % (Auto) 0.9 % (0.0-1.8); Eosinophils # (Auto) 0.2 K/mm3 (0.0-0.4); Eosinophils % (Auto) 2.8 % (0.0-4.3); Hematocrit 34.5 % (35.5-45.6); Hemoglobin 11.5 gm/dl (11.8-15.2); Lymphocytes # (Auto) 1.8 K/mm3 (1.2-5.4); Lymphocytes % (Auto) 25.9 % (13.4-35.0); Mean Corpuscular HGB Conc 33 % (32-34); Mean Corpuscular Volume 95 fl (84-94); Monocytes # (Auto) 0.8 K/mm3 (0.0-0.8); Monocytes % (Auto) 12.3 % (0.0-7.3); Platelet Count 207 K/mm3 (140-440); Red Blood Count 3.63 M/mm3 (3.65-5.03); Red Cell Distribution Width 15.5 % (13.2-15.2)
--- NOTE | 2018-12-25 12:44 | Cat Scan Report ---
CT HEAD WITHOUT CONTRAST HISTORY: head injury. TECHNIQUE: Axial imaging performed from the skull apex through the skull base without the use of con trast. All CT scans at this location are performed using CT dose reduction for ALARA by means of aut omated exposure control. COMPARISON: None FINDINGS: Parenchyma: No acute intracranial hemorrhage or parenchymal abnormality.. Mild hypoattenuation thro ughout the white matter is noted and consistent with chronic microvascular ischemic disease. No extra -axial fluid collection. Ventricles: There is mild diffuse brain atrophy with commensurate ventricular enlargement which is l ikely age appropriate. Soft tissues: Soft tissues including the orbits appear normal. Bones: No acute osseous abnormality. Sinuses: Sinuses and mastoid air cells are clear. IMPRESSION: No acute abnormality. Normal CT brain for age. Signer Name: Milan Colorado Jr, MD Signed: 12/25/2018 12:40 PM Workstation Name: [id number]
--- NOTE | 2018-12-25 12:50 | Cat Scan Report ---
CT CERVICAL SPINE WITHOUT CONTRAST INDICATION: NECK INJURY. TECHNIQUE: Axial imaging performed through the beaver spine without the use of contrast. Sagittal a nd coronal reconstructed images were also reviewed. All CT scans at this location are performed usin g CT dose reduction for ALARA by means of automated exposure control. COMPARISON: None FINDINGS: Alignment: Spinal alignment is normal. Bones: There is no acute osseous abnormality. Moderate to severe degenerative disc narrowing is ervin ntified at C2-3, C3-4, C5-6 and C6-7. The facet joints are in appropriate relationship with minimal a rthritic changes. No hypertrophy. No bone lesion is identified. Soft tissues: No acute or significant incidental soft tissue abnormality. IMPRESSION: Multilevel cervical spondylosis as described. No evidence for acute injury. Signer Name: Milan Colorado Jr, MD Signed: 12/25/2018 12:45 PM Workstation Name: [id number]
[2018-12-25 12:56] LABS: Alanine Aminotransferase 9 units/L (7-56); BUN/Creatinine Ratio 22; Blood Urea Nitrogen 20 mg/dL (9-20); Calcium 9.3 mg/dL (8.4-10.2); Hemolysis Index 8
--- NOTE | 2018-12-25 13:21 | XRay Report ---
XR knee 3V RT INDICATION / CLINICAL INFORMATION: right knee injury. COMPARISON: None available. FINDINGS: BONES/JOINT(S): No acute fracture or subluxation. Mild tricompartmental DJD. No significant joint eff usion. SOFT TISSUES: Multiple vascular clips project over the medial soft tissues. ADDITIONAL FINDINGS: None. Signer Name: Chicho Blackburn MD Signed: 12/25/2018 1:17 PM Workstation Name: [id number]
[2018-12-25 18:48] LABS: Bilirubin,Urine NEG (Negative); Blood,Urine NEG (Negative); Color,Urine Yellow (Yellow); Protein,Urine <15 mg/dL mg/dL (Negative); Urobilinogen,Urine < 2.0 mg/dL (<2.0); WBC,Urine < 1.0 /HPF (0.0-6.0)
[2018-12-25 18:52] VITALS: BP 123/78
== END 2018-12-25 18:30 | disposition home or self-care (01) ==
LOC: ED 10:54
DX: S01.111A Laceration without foreign body of right eyelid and periocular area, initial encounter (principal); S80.01XA Contusion of right knee, initial encounter; I10 Essential (primary) hypertension; Z95.1 Presence of aortocoronary bypass graft; Z79.899 Other long term (current) drug therapy; Z90.49 Acquired absence of other specified parts of digestive tract; W26.8XXA Contact with other sharp object(s), not elsewhere classified, initial encounter; Y93.89 Activity, other specified; Y92.128 Other place in nursing home as the place of occurrence of the external cause; Y99.8 Other external cause status
CPT/HCPCS: 36415; 70450; 72125; 80053; 81001; 84484; 85025; 93005; 93010